=== PATIENT | female | born 1995 | race Caucasian/White ===

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

== ENCOUNTER 2017-01-22 19:06 | Emergency (ER) | payer OTHER ==
[2017-01-22 19:14] VITALS: RESP 18
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
[2017-01-22] MEDS ORDERED: CYCLOBENZAPRINE 10 MG TAB PO STA (19:25)
[2017-01-22] MEDS ORDERED: NAPROXEN 250 MG TAB PO STA (19:27)
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
[2017-01-22 20:44] VITALS: BP 111/75; PULSE 79; TEMP 98.9
== END 2017-01-22 20:44 | disposition home or self-care (01) ==
LOC: EC 19:06
DX: M25.522 Pain in left elbow (principal); M54.2 Cervicalgia; M25.512 Pain in left shoulder; M54.5 Low back pain; F17.200 Nicotine dependence, unspecified, uncomplicated; V43.52XA Car driver injured in collision with other type car in traffic accident, initial encounter; Y92.410 Unspecified street and highway as the place of occurrence of the external cause
CPT/HCPCS: 72050; 72100; 81025; 99284

== ENCOUNTER → 2017-01-31 | Outpatient (CLI) | payer OTHER | END | disposition home or self-care (01) | LOC: RADXRMAIN 16:17 | PROVIDERS: ATTEND Obstetrics & Gynecology | DX: Z53.9 Procedure and treatment not carried out, unspecified reason (principal) ==

== ENCOUNTER → 2017-02-01 | Outpatient (CLI) | payer OTHER ==
--- NOTE | 2017-02-01 15:38 | XR ---
Left humerus HISTORY: Foreign body, Z30.46 2 views of the left humerus. Exam correlated to prior exam 01/22/2017 Longitudinal foreign body is again noted within the soft tissues in the anterior aspect of the upper extremity compatible with contraceptive device. IMPRESSION: Contraceptive device in place at the distal diaphyseal region of the left humerus soft ti ssues at the volar aspect of the left humerus.
== END | disposition home or self-care (01) ==
LOC: RADXRMAIN 13:10
PROVIDERS: ATTEND Obstetrics & Gynecology
DX: Z30.46 Encounter for surveillance of implantable subdermal contraceptive (principal)

== ENCOUNTER 2017-07-12 08:47 | Emergency (ER) | payer OTHER ==
[2017-07-12 08:52] VITALS: BP 121/79; PULSE 111; RESP 18; TEMP 97
--- NOTE | 2017-07-12 09:15 | ED ---
General Adult HPI - General Chief complaint: ENT Stated complaint: Ear pain Time Seen by Provider: 07/12/17 09:09 Source: patient, RN notes reviewed Mode of arrival: ambulatory Limitations: no limitations - History of Present Illness Initial comments: 22-year-old female presents to the emergency department with a chief complaint of cough cold like symptoms. Patient has been sick for the past week or so. She states she started noticing some congestion to the left ear as well. She states that she is smoker. She denies any nausea vomiting. She does not know semi-fevers. Patient was concerned due to the fact she continued to have the symptoms so she thought that she should be seen. Her son has similar like symptoms to her. There has been no other symptoms in the patient at this time. She is otherwise feeling well. Patient denies any recent shortness of breath , chest pain, back pain, abdominal pain, nausea vomiting, numbness or tingling, dysuria or hematuria, constipation or diarrhea, headaches or visual changes, or any other current symptoms. - Related Data Home Medications Medication Instructions Recorded Confirmed Acetaminophen Tab [Tylenol Tab] 325 mg PO Q6H PRN 07/12/17 07/12/17 Previous Rx's Medication Instructions Recorded Pseudoephedrine HCl [Sudafed 240 mg PO DAILY #5 tab.er.24h 07/12/17 24-Hour] Allergies Allergy/AdvReac Type Severity Reaction Status Date / Time No Known Allergies Allergy Verified 07/12/17 09:04 Review of Systems ROS Statement: Those systems with pertinent positive or pertinent negative responses have been documented in the HPI. ROS Other: All systems not noted in ROS Statement are negative. Past Medical History Past Medical History: No Reported History Additional Past Medical History / Comment(s): chronic back pain History of Any Multi-Drug Resistant Organisms: None Reported Past Surgical History: No Surgical Hx Reported Past Psychological History: ADD/ADHD, Anxiety, Depression Smoking Status: Current every day smoker Past Alcohol Use History: None Reported Past Drug Use History: None Reported General Exam - General Exam Comments Initial Comments: General exam: Alert, active, comfortable in no apparent distress Head: Normocephalic Eyes: Normal reaction of pupils, equal size, normal range of extraocular motion Ears: normal external ear canals, pink tympanic membranes with normal cone of light Nose: clear with pink turbinates Throat: no erythema or exudates with normal sized tonsils Neck: no masses, no nuchal rigidity Chest: no chest wall deformity Lungs: equal air entry with no crackles or wheeze CVS: S1 and S2 normal with no audible mumurs, regular rhythm Abdomen: no hepatosplenomegaly, normal bowel sounds, no guarding or rigidity Spine: no scoliosis or deformity Skin: no rashes Neurological: No focal deficits, tone is normal in all 4 extremities Limitations: no limitations Course Vital Signs 07/12/17 08:49 Temperature 97.0 F L Pulse Rate 111 H Respiratory 18 Rate Blood Pressure 121/79 O2 Sat by Pulse 100 Oximetry Medical Decision Making - Medical Decision Making 22-year-old female presents for cough and ear pain. At this time patient states influenza and chest x-ray reviewed and negative. We discussed most likely a viral like syndrome. We did give her prescription for Sudafed to help with congestion. We did discuss return parameters and follow-up and all questions. Patient stated that she understood and she is agreement this plan. All questions have. She will be discharged. - Lab Data Lab Results 07/12/17 Range/Units 09:21 Influenza Type A RNA Not Detected (Not Detectd) Influenza Type B (PCR) Not Detected (Not Detectd) - Radiology Data Radiology results: report reviewed, image reviewed Disposition Clinical Impression: Upper respiratory infection Disposition: HOME SELF-CARE Condition: Stable Instructions: Earache (ED) Additional Instructions: Please use medication as discussed. Please follow up with family doctor if symptoms have not improved over the next two days. Please return to the emergency room if your symptoms increase or worsen or for any other concerns. Prescriptions: Pseudoephedrine HCl [Sudafed 24-Hour] 240 mg PO DAILY #5 tab.er.24h Referrals: Jordan Galvin Jr, DO [Primary Care Provider] - 1-2 days Time of Disposition: 10:07
--- NOTE | 2017-07-12 09:50 | XR ---
EXAMINATION TYPE: XR chest 2V DATE OF EXAM: 07/12/2017 COMPARISON: 08/22/2016 HISTORY: Cough and congestion for approximately 1 week. TECHNIQUE: Frontal and lateral views of the chest are obtained. FINDINGS: There is no focal air space opacity, pleural effusion, or pneumothorax seen. The cardiac silhouette size is within normal limits. The osseous structures are intact. IMPRESSION: No acute cardiopulmonary process, unchanged from the prior.
== END 2017-07-12 10:22 | disposition home or self-care (01) ==
LOC: EC 08:47
DX: J06.9 Acute upper respiratory infection, unspecified (principal); H92.02 Otalgia, left ear; F17.200 Nicotine dependence, unspecified, uncomplicated
CPT/HCPCS: 71046; 87502; 99283

== ENCOUNTER 2017-12-17 02:39 | Emergency (ER) | payer OTHER ==
[2017-12-17] MEDS ORDERED: SODIUM CHLORIDE 0.9% 1,000 ML IV STA (03:40)
[2017-12-17] MEDS ORDERED: KETOROLAC 30 MG/ML 1 ML VIAL IVP STA (03:40)
[2017-12-17] MEDS ORDERED: ACETAMINOPHEN IV (For NPO) 1,000 MG in EMPTY BAG 1 BAG IVPB STA (03:41)
[2017-12-17 04:14] LABS: Basophils % (A) 0 %; Eosinophils # (A) 0.1 k/uL (0-0.7); Eosinophils % (A) 1 %; HCT 35.3 % (34.0-46.0); HGB 12.4 gm/dL (11.4-16.0); Lymphocytes # (A) 1.3 k/uL (1.0-4.8); Lymphocytes % (A) 13 %; MCH 32.4 pg (25.0-35.0); MCV 92.3 fL (80.0-100.0); Monocytes # (A) 0.9 k/uL (0-1.0); Monocytes % (A) 9 %; Neutrophils # (A) 7.3 k/uL (1.3-7.7); Neutrophils % (A) 74 %; Platelet Count 189 k/uL (150-450); RBC 3.82 m/uL (3.80-5.40); RDW 12.6 % (11.5-15.5); WBC 9.9 k/uL (4.0-11.0)
--- NOTE | 2017-12-17 04:15 | ED ---
General Adult HPI - General Source: patient, family, RN notes reviewed Mode of arrival: ambulatory Limitations: no limitations <Yessy Lott - Last Filed: 12/17/17 04:14> <Gordo Ramirez - Last Filed: 12/17/17 04:50> - General Chief complaint: Headache Stated complaint: Headache Time Seen by Provider: 12/17/17 03:27 - History of Present Illness Initial comments: This is a 22-year-old female who presents to the emergency department with chief complaint of headache for the past week and a half. Patient states that she has a constant, throbbing, sharp headache that starts in her forehead and radiates to the base of her skull. She states that she does have a history of headaches. She also reports left side pain that she states is constant and sharp in nature. States that her appetite has been decreased and that she feels nauseous when she sees food. She states she is currently trying to conceive with her boyfriend. Denies any neck pain or stiffness, chest pain or shortness of breath, abdominal pain, vomiting, diarrhea or constipation, dysuria or hematuria. (Yessy Lott) - Related Data Home Medications Medication Instructions Recorded Confirmed No Known Home Medications [No 12/17/17 12/17/17 Known Home Medications] Allergies Allergy/AdvReac Type Severity Reaction Status Date / Time No Known Allergies Allergy Verified 12/17/17 02:48 Review of Systems ROS Other: All systems not noted in ROS Statement are negative. <Yessy Lott - Last Filed: 12/17/17 04:14> ROS Other: All systems not noted in ROS Statement are negative. <Gordo Ramirez - Last Filed: 12/17/17 04:50> ROS Statement: Those systems with pertinent positive or pertinent negative responses have been documented in the HPI. Past Medical History Past Medical History: No Reported History Additional Past Medical History / Comment(s): chronic back pain History of Any Multi-Drug Resistant Organisms: None Reported Past Surgical History: No Surgical Hx Reported Additional Past Surgical History / Comment(s): pt had BC implant removed from left arm in September Past Psychological History: ADD/ADHD, Anxiety, Depression Smoking Status: Current every day smoker Past Alcohol Use History: None Reported Past Drug Use History: None Reported <Yessy Lott - Last Filed: 12/17/17 04:14> General Exam Limitations: no limitations <Yessy Lott - Last Filed: 12/17/17 04:14> <Gordo Ramirez - Last Filed: 12/17/17 04:50> - General Exam Comments Initial Comments: General: Awake and alert, well-developed; in no apparent distress. Does not appear acutely ill. HEENT: Head atraumatic, normocephalic. Pupils are equal, round and reactive to light. Extraocular movements intact. Oropharynx moist without erythema or exudate. Neck: Supple. Normal ROM. No tenderness. Cardiovascular: Regular rate and rhythm. No murmurs, rubs or gallops. Chest symmetrical. Respiratory: Lungs clear to auscultation bilaterally. No wheezes, rales or rhonchi. Normal respiratory effort with no use of accessory muscles. Abdomen: Soft, non-tender, non-distended. No rigidity, rebound or guarding. Normal bowel sounds in all 4 quadrants. Mild left CVA tenderness. Musculoskeletal: Normal ROM, no tenderness bilateral upper and lower extremities. Ambulating normally. Skin: [place], warm and dry without rashes or lesions. Neurological: Alert and oriented x3. CN II-XII grossly intact. Speech is fluent and answers are appropriate. No focal neuro deficits. Psychiatric: Normal mood and affect. No overt signs of depression or anxiety noted. (Yessy Lott) Vital Signs 12/17/17 02:43 Temperature 100.8 F H Pulse Rate 122 H Respiratory 20 Rate Blood Pressure 107/71 O2 Sat by Pulse 95 Oximetry Medical Decision Making - Lab Data Result diagrams: 12/17/17 04:05 12/17/17 04:05 <Gordo Ramirez - Last Filed: 12/17/17 04:50> - Lab Data Lab Results 12/17/17 12/17/17 12/17/17 Range/Units 04:05 04:05 04:05 WBC 9.9 (4.0-11.0) k/uL RBC 3.82 (3.80-5.40) m/uL Hgb 12.4 (11.4-16.0) gm/dL Hct 35.3 (34.0-46.0) % MCV 92.3 (80.0-100.0) fL MCH 32.4 (25.0-35.0) pg MCHC 35.0 (31.0-37.0) g/dL RDW 12.6 (11.5-15.5) % Plt Count 189 (150-450) k/uL Neutrophils % 74 % Lymphocytes % 13 % Monocytes % 9 % Eosinophils % 1 % Basophils % 0 % Neutrophils # 7.3 (1.3-7.7) k/uL Lymphocytes # 1.3 (1.0-4.8) k/uL Monocytes # 0.9 (0-1.0) k/uL Eosinophils # 0.1 (0-0.7) k/uL Basophils # 0.0 (0-0.2) k/uL Sodium 135 L (137-145) mmol/L Potassium 3.7 (3.5-5.1) mmol/L Chloride 100 (98-107) mmol/L Carbon Dioxide 26 (22-30) mmol/L Anion Gap 9 mmol/L BUN 7 (7-17) mg/dL Creatinine 0.60 (0.52-1.04) mg/dL Est GFR (CKD-EPI)AfAm >90 (>60 ml/min/1.73 sqM) Est GFR (CKD-EPI)NonAf >90 (>60 ml/min/1.73 sqM) Glucose 102 H (74-99) mg/dL Calcium 8.8 (8.4-10.2) mg/dL Total Bilirubin 0.3 (0.2-1.3) mg/dL AST 28 (14-36) U/L ALT 41 (9-52) U/L Alkaline Phosphatase 51 (38-126) U/L Total Protein 6.0 L (6.3-8.2) g/dL Albumin 3.6 (3.5-5.0) g/dL Urine Color Urine Appearance (Clear) Urine pH (5.0-8.0) Ur Specific [place] (1.001-1.035) Urine Protein (Negative) Urine Glucose (UA) (Negative) Urine Ketones (Negative) Urine Blood (Negative) Urine Nitrite (Negative) Urine Bilirubin (Negative) Urine Urobilinogen (<2.0) mg/dL Ur Leukocyte Esterase (Negative) Urine RBC (0-5) /hpf Urine WBC (0-5) /hpf Ur Squamous Epith Cells (0-4) /hpf Urine Bacteria (None) /hpf Urine Mucus (None) /hpf Urine HCG, Qual Not Detected (Not Detectd) 12/17/17 Range/Units 04:05 WBC (4.0-11.0) k/uL RBC (3.80-5.40) m/uL Hgb (11.4-16.0) gm/dL Hct (34.0-46.0) % MCV (80.0-100.0) fL MCH (25.0-35.0) pg MCHC (31.0-37.0) g/dL RDW (11.5-15.5) % Plt Count (150-450) k/uL Neutrophils % % Lymphocytes % % Monocytes % % Eosinophils % % Basophils % % Neutrophils # (1.3-7.7) k/uL Lymphocytes # (1.0-4.8) k/uL Monocytes # (0-1.0) k/uL Eosinophils # (0-0.7) k/uL Basophils # (0-0.2) k/uL Sodium (137-145) mmol/L Potassium (3.5-5.1) mmol/L Chloride (98-107) mmol/L Carbon Dioxide (22-30) mmol/L Anion Gap mmol/L BUN (7-17) mg/dL Creatinine (0.52-1.04) mg/dL Est GFR (CKD-EPI)AfAm (>60 ml/min/1.73 sqM) Est GFR (CKD-EPI)NonAf (>60 ml/min/1.73 sqM) Glucose (74-99) mg/dL Calcium (8.4-10.2) mg/dL Total Bilirubin (0.2-1.3) mg/dL AST (14-36) U/L ALT (9-52) U/L Alkaline Phosphatase (38-126) U/L Total Protein (6.3-8.2) g/dL Albumin (3.5-5.0) g/dL Urine Color Yellow Urine Appearance Cloudy H (Clear) Urine pH 5.5 (5.0-8.0) Ur Specific [place] 1.017 (1.001-1.035) Urine Protein 1+ H (Negative) Urine Glucose (UA) Negative (Negative) Urine Ketones Negative (Negative) Urine Blood Moderate H (Negative) Urine Nitrite Positive H (Negative) Urine Bilirubin Negative (Negative) Urine Urobilinogen <2.0 (<2.0) mg/dL Ur Leukocyte Esterase Moderate H (Negative) Urine RBC 6 H (0-5) /hpf Urine WBC 81 H (0-5) /hpf Ur Squamous Epith Cells 6 H (0-4) /hpf Urine Bacteria Many H (None) /hpf Urine Mucus Moderate H (None) /hpf Urine HCG, Qual (Not Detectd) Disposition <Yessy Lott - Last Filed: 12/17/17 04:14> Is patient prescribed a controlled substance at d/c from ED?: No <Gordo Ramirez - Last Filed: 12/17/17 04:50> Clinical Impression: Fever, Pyelonephritis Disposition: HOME SELF-CARE Condition: Good Instructions: Kidney Infection (ED), Urinary Tract Infection in Women (ED) Referrals: Jordan Galvin Jr, [Primary Care Provider] - 1-2 days
[2017-12-17 04:23] LABS: ALT 41 U/L (9-52); AST 28 U/L (14-36); Albumin 3.6 g/dL (3.5-5.0); Alkaline Phosphatase 51 U/L (38-126); Anion Gap 9 mmol/L; Appearance,Urine Cloudy (Clear); Bacteria,Urine Many /hpf; Bilirubin,Urine Negative (Negative); Blood Urea Nitrogen 7 mg/dL (7-17); Blood,Urine Moderate (Negative); Calcium 8.8 mg/dL (8.4-10.2); Carbon Dioxide 26 mmol/L (22-30); Chloride 100 mmol/L (98-107); Color,Urine Yellow; Glucose 102 mg/dL (74-99); Glucose,Urine (UA) Negative (Negative); Ketones,Urine Negative (Negative); Leukocyte Esterase,Urine Moderate (Negative); Mucus,Urine Moderate /hpf; Nitrite,Urine Positive (Negative); PH, Urine 5.5 (5.0-8.0); Potassium 3.7 mmol/L (3.5-5.1); Protein,Urine 1+ (Negative); RBC,Urine 6 /hpf (0-5); Sodium 135 mmol/L (137-145); Specific Gravity,Urine 1.017 (1.001-1.035); Squamous Epithelial Cell,Urine 6 /hpf (0-4); Total Bilirubin 0.3 mg/dL (0.2-1.3); Urobilinogen,Urine <2.0 mg/dL (<2.0); WBC,Urine 81 /hpf (0-5)
[2017-12-17] MEDS ORDERED: cefTRIAXone IN SWFI 2,000 MG/20 ML SYRINGE IVP STA (04:30)
--- NOTE | 2017-12-17 04:43 | XR ---
EXAMINATION TYPE: XR abdomen acute w cxr DATE OF EXAM: 12/17/2017 COMPARISON: 08/25/2011 HISTORY: Constipation TECHNIQUE: Chest x-ray and supine and upright abdomen. FINDINGS: Heart and mediastinum are normal. Lungs are clear. Diaphragm is normal. Bowel gas pattern is normal. There is no sign of intestinal obstruction or pneumoperitoneum. Fecal pattern is normal. There are no pathologic calcifications. IMPRESSION: Normal chest. Nonacute abdomen. No evidence of constipation.
--- NOTE | 2017-12-17 05:19 | CT ---
EXAMINATION TYPE: CT abdomen pelvis wo con DATE OF EXAM: 12/17/2017 COMPARISON: NONE HISTORY: Left flank pain CT DLP: 240.90 mGycm Automated exposure control for dose reduction was used. TECHNIQUE: Helical acquisition of images was performed from the lung bases through the pelvis. FINDINGS: Lung bases are clear. There is no pleural effusion. Heart size is normal. Liver spleen pancreas gallbladder appear normal. Bile ducts are not dilated. There is no adrenal mass . Kidneys have normal size. I see no hydronephrosis. Ureters are not dilated. Exam is limited by lack of intraperitoneal fat. I see no intestinal wall thickening. There are no dilated loops. Bladder dis tends smoothly. Uterus is anteverted. Lumbar spine is intact. There is no free fluid in the pelvis. T here is no ascites. There is no sign of free air. There is no retroperitoneal adenopathy. Appendix is not well seen. IMPRESSION: NEGATIVE CT SCAN OF THE ABDOMEN AND PELVIS. NO EVIDENCE OF RENAL STONE OR OBSTRUCTION. NO SIGN OF JUAN ANTONIO ENDICITIS.
[2017-12-17 05:28] VITALS: BP 105/58; PULSE 88; RESP 18; TEMP 98.3
== END 2017-12-17 05:36 | disposition home or self-care (01) ==
LOC: EC 02:39
DX: N12 Tubulo-interstitial nephritis, not specified as acute or chronic (principal); F17.200 Nicotine dependence, unspecified, uncomplicated
CPT/HCPCS: 36415; 80053; 85025; 81001; 81025; 74022; 74176; 99284; 96365; 96375 ×2; J0696; J1885; J0131

== ENCOUNTER 2018-01-02 08:42 | Emergency (ER) | payer OTHER ==
[2018-01-02] MEDS ORDERED: SODIUM CHLORIDE 0.9% 1,000 ML IV ONE (09:17)
[2018-01-02] MEDS ORDERED: KETOROLAC 30 MG/ML 1 ML VIAL IVP STA (09:17)
[2018-01-02] MEDS ORDERED: HYDROcodone/APAP 5-325MG 1 EACH TAB PO STA (09:20)
--- NOTE | 2018-01-02 09:22 | ED ---
General Adult HPI - General Chief complaint: Back Pain/Injury Stated complaint: back pain Time Seen by Provider: 01/02/18 08:55 Source: EMS, RN notes reviewed, old records reviewed Mode of arrival: EMS Limitations: no limitations - History of Present Illness Initial comments: This Patient is a 22-year-old female with multiple complaints today. Patient states that she was seen 2 weeks ago for urinary tract infections we'll check a kidney infection. She is currently taking Cipro. She reports her urine has cleared up this time. She states that she does have some lower abdominal pain. She is currently on her menstrual cycle. Patient states that she's also had a shooting back pain this morning at 4 AM. She then fell on her floor afterwards and took 45 minutes for her to get up. EMS was called. She also reports that over the past week she's been having a cough and congestion. Denies any significant redness of breath or chest pain. - Related Data Previous Rx's Medication Instructions Recorded Ciprofloxacin HCl [Cipro] 500 mg PO Q12HR #28 tablet 12/17/17 Cyclobenzaprine [Flexeril] 10 mg PO TID #12 tab 01/02/18 Ibuprofen [Motrin] 800 mg PO TID #20 tab 01/02/18 traMADol HCl [Ultram] 50 mg PO Q4HR PRN 3 Days #18 tab 01/02/18 Allergies Allergy/AdvReac Type Severity Reaction Status Date / Time No Known Allergies Allergy Verified 01/02/18 09:00 Review of Systems ROS Statement: Those systems with pertinent positive or pertinent negative responses have been documented in the HPI. ROS Other: All systems not noted in ROS Statement are negative. Past Medical History Past Medical History: No Reported History Additional Past Medical History / Comment(s): chronic back pain History of Any Multi-Drug Resistant Organisms: None Reported Past Surgical History: No Surgical Hx Reported Additional Past Surgical History / Comment(s): pt had BC implant removed from left arm in September Past Psychological History: ADD/ADHD, Anxiety, Depression Smoking Status: Current every day smoker Past Alcohol Use History: None Reported Past Drug Use History: None Reported General Exam - General Exam Comments Initial Comments: this is a 22-year-old female. Alert and oriented. No acute distress. Limitations: no limitations General appearance: alert, in no apparent distress Head exam: Present: atraumatic, normocephalic, normal inspection Eye exam: Present: normal appearance ENT exam: Present: normal exam, mucous membranes moist Neck exam: Present: normal inspection. Absent: tenderness, meningismus, lymphadenopathy Respiratory exam: Present: normal lung sounds bilaterally. Absent: respiratory distress, wheezes, rales, rhonchi, stridor Cardiovascular Exam: Present: regular rate, normal rhythm, normal heart sounds. Absent: systolic murmur, diastolic murmur, rubs, gallop, clicks GI/Abdominal exam: Present: soft, normal bowel sounds. Absent: distended, tenderness, guarding, rebound, rigid Extremities exam: Present: normal inspection, full ROM, normal capillary refill. Absent: tenderness, pedal edema, joint swelling, calf tenderness Back exam: Present: tenderness, paraspinal tenderness (lumbar and thoracic vertebral spinal tenderness.), vertebral tenderness. Absent: normal inspection Neurological exam: Present: alert, oriented X3, CN II-XII intact Psychiatric exam: Present: normal affect, normal mood Skin exam: Present: warm, dry, intact, normal color. Absent: rash Course Vital Signs 01/02/18 01/02/18 01/02/18 08:44 10:57 11:42 Temperature 100.0 F H 98.8 F Pulse Rate 72 87 Respiratory 18 16 Rate Blood Pressure 102/57 110/58 O2 Sat by Pulse 99 96 Oximetry Medical Decision Making - Medical Decision Making This Patient is a 22-year-old female with multiple complaints today. Patient states that she was seen 2 weeks ago for urinary tract infections we'll check a kidney infection. She is currently taking Cipro. She reports her urine has cleared up this time. She states that she does have some lower abdominal pain. She is currently on her menstrual cycle. Patient states that she's also had a shooting back pain this morning at 4 AM. She then fell on her floor afterwards and took 45 minutes for her to get up. Patient has tenderness over lumbar spine. She has full ROM in lower extremities. Patient otherwise appears well. Patient given IV fluids and pain medication. Xray of lumbar pine shows DDD. She has normal CXR. She has no sign of infection in urine, she is on menstrual cycle in regards to amount of blood in urine. Patient advised to follow up with PCP and continue cipro until finished. She will be started on a muscle relaxer. REturn parameters discussed. - Lab Data Result diagrams: 01/02/18 09:45 01/02/18 09:45 Lab Results 01/02/18 01/02/18 01/02/18 Range/Units 09:40 09:40 09:45 WBC 14.4 H (4.0-11.0) k/uL RBC 4.25 (3.80-5.40) m/uL Hgb 14.0 (11.4-16.0) gm/dL Hct 40.5 (34.0-46.0) % MCV 95.1 (80.0-100.0) fL MCH 33.0 (25.0-35.0) pg MCHC 34.7 (31.0-37.0) g/dL RDW 13.7 (11.5-15.5) % Plt Count 211 (150-450) k/uL Neutrophils % 92 % Lymphocytes % 4 % Monocytes % 4 % Eosinophils % 0 % Basophils % 0 % Neutrophils # 13.2 H (1.3-7.7) k/uL Lymphocytes # 0.5 L (1.0-4.8) k/uL Monocytes # 0.6 (0-1.0) k/uL Eosinophils # 0.0 (0-0.7) k/uL Basophils # 0.0 (0-0.2) k/uL Sodium (137-145) mmol/L Potassium (3.5-5.1) mmol/L Chloride (98-107) mmol/L Carbon Dioxide (22-30) mmol/L Anion Gap mmol/L BUN (7-17) mg/dL Creatinine (0.52-1.04) mg/dL Est GFR (CKD-EPI)AfAm (>60 ml/min/1.73 sqM) Est GFR (CKD-EPI)NonAf (>60 ml/min/1.73 sqM) Glucose (74-99) mg/dL Calcium (8.4-10.2) mg/dL Total Bilirubin (0.2-1.3) mg/dL AST (14-36) U/L ALT (9-52) U/L Alkaline Phosphatase (38-126) U/L Total Protein (6.3-8.2) g/dL Albumin (3.5-5.0) g/dL Urine Color Yellow Urine Appearance Clear (Clear) Urine pH 8.0 (5.0-8.0) Ur Specific [place] 1.019 (1.001-1.035) Urine Protein Trace H (Negative) Urine Glucose (UA) Negative (Negative) Urine Ketones Trace H (Negative) Urine Blood Large H (Negative) Urine Nitrite Negative (Negative) Urine Bilirubin Negative (Negative) Urine Urobilinogen 2.0 (<2.0) mg/dL Ur Leukocyte Esterase Small H (Negative) Urine RBC >182 H (0-5) /hpf Urine WBC 8 H (0-5) /hpf Ur Squamous Epith Cells 3 (0-4) /hpf Urine Mucus Rare H (None) /hpf Urine HCG, Qual Not Detected (Not Detectd) 01/02/18 Range/Units 09:45 WBC (4.0-11.0) k/uL RBC (3.80-5.40) m/uL Hgb (11.4-16.0) gm/dL Hct (34.0-46.0) % MCV (80.0-100.0) fL MCH (25.0-35.0) pg MCHC (31.0-37.0) g/dL RDW (11.5-15.5) % Plt Count (150-450) k/uL Neutrophils % % Lymphocytes % % Monocytes % % Eosinophils % % Basophils % % Neutrophils # (1.3-7.7) k/uL Lymphocytes # (1.0-4.8) k/uL Monocytes # (0-1.0) k/uL Eosinophils # (0-0.7) k/uL Basophils # (0-0.2) k/uL Sodium 141 (137-145) mmol/L Potassium 4.1 (3.5-5.1) mmol/L Chloride 106 (98-107) mmol/L Carbon Dioxide 24 (22-30) mmol/L Anion Gap 11 mmol/L BUN 11 (7-17) mg/dL Creatinine 0.60 (0.52-1.04) mg/dL Est GFR (CKD-EPI)AfAm >90 (>60 ml/min/1.73 sqM) Est GFR (CKD-EPI)NonAf >90 (>60 ml/min/1.73 sqM) Glucose 100 H (74-99) mg/dL Calcium 9.8 (8.4-10.2) mg/dL Total Bilirubin 0.8 (0.2-1.3) mg/dL AST 23 (14-36) U/L ALT 35 (9-52) U/L Alkaline Phosphatase 66 (38-126) U/L Total Protein 7.1 (6.3-8.2) g/dL Albumin 4.5 (3.5-5.0) g/dL Urine Color Urine Appearance (Clear) Urine pH (5.0-8.0) Ur Specific [place] (1.001-1.035) Urine Protein (Negative) Urine Glucose (UA) (Negative) Urine Ketones (Negative) Urine Blood (Negative) Urine Nitrite (Negative) Urine Bilirubin (Negative) Urine Urobilinogen (<2.0) mg/dL Ur Leukocyte Esterase (Negative) Urine RBC (0-5) /hpf Urine WBC (0-5) /hpf Ur Squamous Epith Cells (0-4) /hpf Urine Mucus (None) /hpf Urine HCG, Qual (Not Detectd) - Radiology Data Radiology results: report reviewed Degenerative disc disease is mild. Lumbar vertebral bodies show stable height and alignment. Spaces are maintained disc l I loss L5-S1. Slight spinal curvature. Chest x-ray is negative for any acute cardiopulmonary process. Disposition Clinical Impression: DDD (degenerative disc disease), Upper respiratory infection Disposition: HOME SELF-CARE Condition: Good Instructions: Acute Low Back Pain (ED) Additional Instructions: Patient is to complete the antibiotic is As prescribed previuosly. Follow-up with primary care physician. Take the medication as prescribed. Return to emergency department if any alarming signs or symptoms occur. Prescriptions: Cyclobenzaprine [Flexeril] 10 mg PO TID #12 tab Ibuprofen [Motrin] 800 mg PO TID #20 tab traMADol HCl [Ultram] 50 mg PO Q4HR PRN 3 Days #18 tab PRN Reason: Pain Is patient prescribed a controlled substance at d/c from ED?: No When asked, does pt state using other controlled substances?: No If prescribed controlled substance>3 days was MAPS reviewed?: No If opioid is for acute pain is fill amount 7 days or less?: No If Rx opioid, was Start Talking consent form obtained?: No Referrals: Jordan Galvin Jr, DO [Primary Care Provider] - 1-2 days Time of Disposition: 11:31
[2018-01-02 10:15] LABS: Appearance,Urine Clear (Clear); Bilirubin,Urine Negative (Negative); Blood,Urine Large (Negative); Color,Urine Yellow; Glucose,Urine (UA) Negative (Negative); Ketones,Urine Trace (Negative); Leukocyte Esterase,Urine Small (Negative); Mucus,Urine Rare /hpf; Nitrite,Urine Negative (Negative); Protein,Urine Trace (Negative); RBC,Urine >182 /hpf (0-5); Specific Gravity,Urine 1.019 (1.001-1.035); Squamous Epithelial Cell,Urine 3 /hpf (0-4); WBC,Urine 8 /hpf (0-5)
[2018-01-02 10:16] LABS: ALT 35 U/L (9-52); AST 23 U/L (14-36); Albumin 4.5 g/dL (3.5-5.0); Alkaline Phosphatase 66 U/L (38-126); Anion Gap 11 mmol/L; Blood Urea Nitrogen 11 mg/dL (7-17); Calcium 9.8 mg/dL (8.4-10.2); Carbon Dioxide 24 mmol/L (22-30); Chloride 106 mmol/L (98-107); Glucose 100 mg/dL (74-99); Potassium 4.1 mmol/L (3.5-5.1); Sodium 141 mmol/L (137-145); Total Bilirubin 0.8 mg/dL (0.2-1.3); Total Protein 7.1 g/dL (6.3-8.2)
[2018-01-02 10:31] LABS: Basophils % (A) 0 %; Eosinophils % (A) 0 %; HCT 40.5 % (34.0-46.0); Lymphocytes # (A) 0.5 k/uL (1.0-4.8); Lymphocytes % (A) 4 %; MCHC 34.7 g/dL (31.0-37.0); MCV 95.1 fL (80.0-100.0); Monocytes # (A) 0.6 k/uL (0-1.0); Monocytes % (A) 4 %; Neutrophils # (A) 13.2 k/uL (1.3-7.7); Neutrophils % (A) 92 %; Platelet Count 211 k/uL (150-450); RBC 4.25 m/uL (3.80-5.40); RDW 13.7 % (11.5-15.5); WBC 14.4 k/uL (4.0-11.0)
--- NOTE | 2018-01-02 10:48 | XR ---
EXAMINATION TYPE: XR chest 2V DATE OF EXAM: 01/02/2018 COMPARISON: 07/12/2017 HISTORY: Back pain and chest pain with no known injury. TECHNIQUE: Frontal and lateral views of the chest are obtained. FINDINGS: There is no focal air space opacity, pleural effusion, or pneumothorax seen. The cardiac silhouette size is within normal limits. The osseous structures are intact. IMPRESSION: No acute cardiopulmonary process.
--- NOTE | 2018-01-02 10:51 | XR ---
Lumbar spine HISTORY: Back pain 3 views of the lumbar spine correlated to prior exam 01/22/2017, CT 12/17/2017 Lumbar vertebral bodies show stable height, alignment, and bone mineralization. Disc spaces are maint ained, disc height loss L5-S1. There is a slight spinal curvature. IMPRESSION: Degenerative disc disease is mild
[2018-01-02 10:58] VITALS: TEMP 98.8
[2018-01-02 11:44] VITALS: BP 110/58; PULSE 87; RESP 16
== END 2018-01-02 11:48 | disposition home or self-care (01) ==
LOC: EC 08:42
DX: M51.36 Other intervertebral disc degeneration, lumbar region (principal); J06.9 Acute upper respiratory infection, unspecified; F17.200 Nicotine dependence, unspecified, uncomplicated
CPT/HCPCS: 36415; 80053; 85025; 81001; 81025; 72100; 71046; 99284; 96374; 96361 ×2; J1885

== ENCOUNTER 2018-02-04 17:40 | Emergency (ER) | payer OTHER ==
[2018-02-04 17:48] VITALS: BP 109/77; PULSE 97; RESP 18; TEMP 98.5
[2018-02-04] MEDS ORDERED: TOPICAL SKIN ADHESIVE 1 EACH AMP TOPICAL ONE (18:15)
[2018-02-04] MEDS ORDERED: DIPH,PERTUS(ACELL)TETVAC-LF 0.5 ML VIAL IM ONE (18:22)
--- NOTE | 2018-02-04 18:23 | ED ---
Skin/Abscess/FB HPI - General Chief complaint: Skin/Abscess/Foreign Body Stated complaint: rt hand lac Time Seen by Provider: 02/04/18 17:49 Source: patient, RN notes reviewed, old records reviewed Mode of arrival: ambulatory Limitations: no limitations - History of Present Illness Initial comments: This patient is a 22 year old female with laceration over R finger. She was washing dishes and cut her hand on the edge of the glass. She reports full ROM of fingers. Patient needs TDAP vaccine. She reports no other injury. - Related Data Previous Rx's Medication Instructions Recorded Ciprofloxacin HCl [Cipro] 500 mg PO Q12HR #28 tablet 12/17/17 Cyclobenzaprine [Flexeril] 10 mg PO TID #12 tab 01/02/18 Ibuprofen [Motrin] 800 mg PO TID #20 tab 01/02/18 traMADol HCl [Ultram] 50 mg PO Q4HR PRN 3 Days #18 tab 01/02/18 Allergies Allergy/AdvReac Type Severity Reaction Status Date / Time No Known Allergies Allergy Verified 02/04/18 17:48 Review of Systems ROS Statement: Those systems with pertinent positive or pertinent negative responses have been documented in the HPI. ROS Other: All systems not noted in ROS Statement are negative. Past Medical History Past Medical History: No Reported History Additional Past Medical History / Comment(s): chronic back pain History of Any Multi-Drug Resistant Organisms: None Reported Past Surgical History: No Surgical Hx Reported Additional Past Surgical History / Comment(s): pt had BC implant removed from left arm in September Past Psychological History: ADD/ADHD, Anxiety, Depression Smoking Status: Current every day smoker Past Alcohol Use History: None Reported Past Drug Use History: None Reported General Exam - General Exam Comments Initial Comments: This is a well appearing 22 year old female, no distress. Limitations: no limitations General appearance: alert, in no apparent distress Head exam: Present: atraumatic, normocephalic, normal inspection Eye exam: Present: normal appearance, PERRL, EOMI. Absent: scleral icterus, conjunctival injection, periorbital swelling ENT exam: Present: normal exam, mucous membranes moist Neck exam: Present: normal inspection. Absent: tenderness, meningismus, lymphadenopathy Respiratory exam: Present: normal lung sounds bilaterally. Absent: respiratory distress, wheezes, rales, rhonchi, stridor Cardiovascular Exam: Present: regular rate, normal rhythm, normal heart sounds. Absent: systolic murmur, diastolic murmur, rubs, gallop, clicks GI/Abdominal exam: Present: soft, normal bowel sounds. Absent: distended, tenderness, guarding, rebound, rigid Right Hand L/R Back: 1 - skin abrasion Back exam: Present: normal inspection Neurological exam: Present: alert, oriented X3, CN II-XII intact Psychiatric exam: Present: normal affect, normal mood Skin exam: Present: warm, dry, intact, normal color. Absent: rash Course Vital Signs 02/04/18 17:46 Temperature 98.5 F Pulse Rate 97 Respiratory 18 Rate Blood Pressure 109/77 O2 Sat by Pulse 99 Oximetry Procedures - Laceration Laceration #1 Site: hand (R index finger) Size (cm): 3 Description: linear Depth: simple, single layer Pre-repair: wound explored, irrigated extensively Type of Sutures: other (dermabond) Patient Tolerated Procedure: well, no complications Medical Decision Making - Medical Decision Making 22 year old female with laceration to R index finger. Laveration is superficial , and was cleaned and well approximated with dermabond. Full ROM noted. Given Updated TDAP. Discussed wound care. All questions answered and return parameters dsicussed. Disposition Clinical Impression: Finger laceration Disposition: HOME SELF-CARE Condition: Good Instructions: Abrasion (ED) Additional Instructions: Patient advised to keep the area clean and dry. Wear the Ramesh bandage. Return to the emergency department if any alarming signs or symptoms occur. Allow the skin glue to fall off up on its own. Is patient prescribed a controlled substance at d/c from ED?: No When asked, does pt state using other controlled substances?: No Referrals: Jordan Galvin Jr, DO [Primary Care Provider] - 1-2 days Time of Disposition: 18:22
== END 2018-02-04 19:25 | disposition home or self-care (01) ==
LOC: EC 17:40
DX: S61.210A Laceration without foreign body of right index finger without damage to nail, initial encounter (principal); F17.200 Nicotine dependence, unspecified, uncomplicated; W25.XXXA Contact with sharp glass, initial encounter; Y93.G1 Activity, food preparation and clean up
CPT/HCPCS: 12002; 99283

== ENCOUNTER 2019-03-18 08:09 | Emergency (ER) | payer OTHER ==
[2019-03-18 08:13] VITALS: RESP 18; TEMP 97.8
--- NOTE | 2019-03-18 08:52 | XR ---
EXAMINATION TYPE: XR chest 2V DATE OF EXAM ORDERED: 03/18/2019 HISTORY: Difficulty breathing . REFERENCE: Previous study dated 01/02/2018. FINDINGS: The lungs are clear. Pleural spaces are clear. Heart size is normal. IMPRESSION: NORMAL CHEST.
[2019-03-18] MEDS ORDERED: IPRATROPIUM-ALBUTEROL 3 ML NEB INHALATION STA (08:59)
--- NOTE | 2019-03-18 09:21 | ED ---
General Adult HPI - General Chief complaint: Shortness of Breath Stated complaint: Diff Breathing Time Seen by Provider: 03/18/19 08:10 Source: patient, RN notes reviewed Mode of arrival: ambulatory Limitations: no limitations - History of Present Illness Initial comments: This is a 23-year-old female presents emergency department stating she woke up this morning and felt short of breath. Patient states she's had no cough no chest pain L petitions. Patient denies any leg swelling or calf tetanus. Patient denies any control. Patient states anytime she starts to try to take a deep breath it makes her hyperventilate. As patient is telling me her story her mouth is closed she is in no respiratory distress and she's breathing through her nose mostly. Patient denies any recent fever chills per patient denies abdominal pain patient denies nausea vomiting. - Related Data Home Medications Medication Instructions Recorded Confirmed No Known Home Medications 03/18/19 03/18/19 Allergies Allergy/AdvReac Type Severity Reaction Status Date / Time No Known Allergies Allergy Verified 03/18/19 08:54 Review of Systems ROS Statement: Those systems with pertinent positive or pertinent negative responses have been documented in the HPI. ROS Other: All systems not noted in ROS Statement are negative. Past Medical History Past Medical History: No Reported History Additional Past Medical History / Comment(s): chronic back pain History of Any Multi-Drug Resistant Organisms: None Reported Past Surgical History: No Surgical Hx Reported Additional Past Surgical History / Comment(s): pt had BC implant removed from left arm in September Past Psychological History: ADD/ADHD, Anxiety, Depression Smoking Status: Current every day smoker Past Alcohol Use History: None Reported Past Drug Use History: None Reported General Exam - General Exam Comments Initial Comments: GENERAL: Patient is well-developed and well-nourished. Patient is nontoxic and well- hydrated and is in no acute distress. ENT: Neck is soft and supple. No significant lymphadenopathy is noted. Oropharynx is clear. Moist mucous membranes. Neck has full range of motion without eliciting any pain.were felt. EYES: The sclera were anicteric and conjunctiva were pink and moist. Extraocular movements were intact and pupils were equal round and reactive to light. Eyelids were unremarkable. PULMONARY: Unlabored respirations. Good breath sounds bilaterally. No audible rales rhonchi or wheezing was noted. CARDIOVASCULAR: There is a regular rate and rhythm without any murmurs gallops or rubs. ABDOMEN: Soft and nontender with normal bowel sounds. No palpable organomegaly was noted. There is no palpable pulsatile mass. SKIN: Skin is clear with no lesions or rashes and otherwise unremarkable. NEUROLOGIC: Patient is alert and oriented x3. Cranial nerves II through XII are grossly intact. Motor and sensory are also intact. Normal speech, volume and content. Symmetrical smile. MUSCULOSKELETAL: Normal extremities with adequate strength and full range of motion. . LYMPHATICS: No significant lymphadenopathy is noted PSYCHIATRIC: Patient is mildly anxious Limitations: no limitations Course Vital Signs 03/18/19 03/18/19 03/18/19 08:12 08:40 09:12 Temperature 97.8 F Pulse Rate 72 83 76 Respiratory 18 Rate Blood Pressure 109/74 O2 Sat by Pulse 100 94 L Oximetry 03/18/19 09:22 Temperature Pulse Rate 82 Respiratory Rate Blood Pressure O2 Sat by Pulse Oximetry Medical Decision Making - Medical Decision Making Chest x-ray shows no acute abnormality. Patient's EKG shows normal sinus rhythm at 73 bpm TN interval 172 QRS is 76 QT interval 42 QTC is 442. Patient's EKG shows no ST segment elevation or depression or T wave abnormalities are noted. Patient's d-dimer was normal. Patient was oxygenating in the high 90s all-time she was here without oxygen. Patient did admit to me that she has a history of anxiety and panic attacks and this could very well be 1. Throughout the course of the patient in the emergency department she was lying comfortably never in any respiratory distress breathing through her nose with her mouth shut. - Lab Data Lab Results 03/18/19 Range/Units 09:17 D-Dimer 0.19 (<0.60) mg/L FEU Disposition Clinical Impression: Anxiety Disposition: HOME SELF-CARE Instructions (If sedation given, give patient instructions): Anxiety (ED) Is patient prescribed a controlled substance at d/c from ED?: No Referrals: Mhosen Hassan MD [Primary Care Provider] - 1-2 days Time of Disposition: 10:30
[2019-03-18 10:57] VITALS: BP 122/73
[2019-03-18 11:13] VITALS: PULSE 88
== END 2019-03-18 11:12 | disposition home or self-care (01) ==
LOC: EC 08:09
DX: F41.9 Anxiety disorder, unspecified (principal); F17.200 Nicotine dependence, unspecified, uncomplicated
CPT/HCPCS: 36415; 71046; 85379; 94640; 99285

== ENCOUNTER 2019-04-11 09:19 | Emergency (ER) | payer OTHER ==
[2019-04-11 09:31] VITALS: TEMP 97.9
--- NOTE | 2019-04-11 10:23 | ED ---
Female Urogenital HPI - General Chief complaint: Vaginal Bleeding Stated complaint: Female Time Seen by Provider: 04/11/19 09:33 Source: patient, RN notes reviewed Mode of arrival: ambulatory Limitations: no limitations - History of Present Illness Initial comments: This is a 24-year-old female presents emergency Department chief complaint of vaginal bleeding, vaginal discomfort. Patient states that she is been being worked up by the [facility] for possible STDs which were negative. Patient states been on and off control but states that she had a menstrual cycle a few days ago but started again. Patient states that she's passing some mild blood denies any vaginal discharge she does state that she has relief initially when she urinates but states causes increased pain when she stops. Patient reports no back pain no flank pain. Denies any chance printed. - Related Data Previous Rx's Medication Instructions Recorded Cephalexin [Keflex] 500 mg PO Q6HR #28 cap 04/11/19 Phenazopyridine [Pyridium] 200 mg PO TID #6 tablet 04/11/19 Allergies Allergy/AdvReac Type Severity Reaction Status Date / Time No Known Allergies Allergy Verified 04/11/19 10:53 Review of Systems ROS Statement: Those systems with pertinent positive or pertinent negative responses have been documented in the HPI. ROS Other: All systems not noted in ROS Statement are negative. Past Medical History Past Medical History: No Reported History Additional Past Medical History / Comment(s): chronic back pain History of Any Multi-Drug Resistant Organisms: None Reported Past Surgical History: No Surgical Hx Reported Additional Past Surgical History / Comment(s): pt had BC implant removed from left arm in September Past Psychological History: ADD/ADHD, Anxiety, Depression Smoking Status: Current every day smoker Past Alcohol Use History: None Reported Past Drug Use History: Marijuana General Exam Limitations: no limitations General appearance: alert, in no apparent distress Head exam: Present: atraumatic, normocephalic, normal inspection Eye exam: Present: normal appearance, PERRL, EOMI. Absent: scleral icterus, conjunctival injection, periorbital swelling ENT exam: Present: normal exam, normal oropharynx, mucous membranes moist Neck exam: Present: normal inspection, full ROM. Absent: tenderness, meningismus, lymphadenopathy Respiratory exam: Present: normal lung sounds bilaterally. Absent: respiratory distress, wheezes, rales, rhonchi, stridor Cardiovascular Exam: Present: regular rate, normal rhythm, normal heart sounds. Absent: systolic murmur, diastolic murmur, rubs, gallop, clicks GI/Abdominal exam: Present: soft, tenderness (Mild suprapubic), normal bowel sounds. Absent: distended, guarding, rebound, rigid Neurological exam: Present: alert, oriented X3, CN II-XII intact Skin exam: Present: warm, dry, intact, normal color. Absent: rash Course Vital Signs 04/11/19 09:29 Temperature 97.9 F Pulse Rate 93 Respiratory 18 Rate Blood Pressure 130/84 O2 Sat by Pulse 98 Oximetry Medical Decision Making - Medical Decision Making Urinalysis revealed shows evidence of urinary tract infection. Patient does have blood noted though this is from her current mental cycle. Ultrasound shows normal endometrial lining possible hemorrhagic cyst. Patient symptoms are related to her urinary tract infection was given Rocephin emergency Department discharge on Keflex. Pending urine culture - Lab Data Lab Results 04/11/19 Range/Units 10:05 Urine Color Yellow Urine Appearance Cloudy H (Clear) Urine pH 8.5 H (5.0-8.0) Ur Specific [place] 1.021 (1.001-1.035) Urine Protein 3+ H (Negative) Urine Glucose (UA) Negative (Negative) Urine Ketones Negative (Negative) Urine Blood Moderate H (Negative) Urine Nitrite Negative (Negative) Urine Bilirubin Negative (Negative) Urine Urobilinogen 2.0 (<2.0) mg/dL Ur Leukocyte Esterase Large H (Negative) Urine RBC >182 H (0-5) /hpf Urine WBC >182 H (0-5) /hpf Ur Squamous Epith Cells 1 (0-4) /hpf Urine Mucus Few H (None) /hpf Disposition Clinical Impression: Urinary tract infection, Dysfunctional uterine bleeding Disposition: HOME SELF-CARE Condition: Stable Instructions (If sedation given, give patient instructions): Urinary Tract Infection in Women (ED) Additional Instructions: Please return to the Emergency Department if symptoms worsen or any other concerns. Prescriptions: Cephalexin [Keflex] 500 mg PO Q6HR #28 cap Phenazopyridine [Pyridium] 200 mg PO TID #6 tablet Is patient prescribed a controlled substance at d/c from ED?: No Referrals: Mohsen Hassan MD [Primary Care Provider] - 1-2 days Time of Disposition: 11:25
[2019-04-11 10:44] LABS: Appearance,Urine Cloudy (Clear); Bilirubin,Urine Negative (Negative); Blood,Urine Moderate (Negative); Color,Urine Yellow; Glucose,Urine (UA) Negative (Negative); Ketones,Urine Negative (Negative); Leukocyte Esterase,Urine Large (Negative); Mucus,Urine Few /hpf; Nitrite,Urine Negative (Negative); PH, Urine 8.5 (5.0-8.0); Protein,Urine 3+ (Negative); RBC,Urine >182 /hpf (0-5); Specific Gravity,Urine 1.021 (1.001-1.035); Squamous Epithelial Cell,Urine 1 /hpf (0-4)
--- NOTE | 2019-04-11 10:48 | US ---
EXAMINATION TYPE: US transvaginal DATE OF EXAM: 04/11/2019 COMPARISON: NONE CLINICAL HISTORY: pain. vagina pain for 3 days after rough intercourse, TECHNIQUE: TV. Transvaginal sonographic images Date of LMP: 04/06/2019 EXAM MEASUREMENTS: Uterus: 8.0 x 5.1 x 3.7 cm Endometrial Stripe: 0.7 cm Right Ovary: 3.2 x 2.8 x 2.7 cm Left Ovary: 2.7 x 2.0 x 2.3 cm 1. Uterus: Anteverted wnl 2. Endometrium: wnl 3. Right Ovary: 1.6cm dominate follicle 4. Left Ovary: 1.3cm complex cyst seen Spectral, color and waveform doppler imaging shows good arterial and venous flow within the ovaries . 5. Bilateral Adnexa: wnl 6. Posterior cul-de-sac: wnl Heterogeneous uterus. Endometrial stripe within normal limits. No free fluid in pelvic cul-de-sac. Both ovaries seen with scattered peripheral follicles and heterogeneous poorly defined 1.3 cm left ov lupillo lesion could reflect resolving hemorrhagic cyst. IMPRESSION: As above.
[2019-04-11] MEDS ORDERED: cefTRIAXone 1,000 MG VIAL (IM USE) IM STA (11:24)
[2019-04-11 11:58] VITALS: BP 135/76; PULSE 76; RESP 16
== END 2019-04-11 12:04 | disposition home or self-care (01) ==
LOC: EC 09:19
DX: N39.0 Urinary tract infection, site not specified (principal); N93.8 Other specified abnormal uterine and vaginal bleeding; F17.200 Nicotine dependence, unspecified, uncomplicated
CPT/HCPCS: 81001; 81025; 87086; 93975; 76830; 99284; 96372; J0696

== ENCOUNTER 2019-07-16 01:43 | Emergency (ER) | payer OTHER ==
[2019-07-16 01:51] VITALS: TEMP 99.3
[2019-07-16 03:08] LABS: Appearance,Urine Cloudy (Clear); Bilirubin,Urine Negative (Negative); Blood,Urine Negative (Negative); Color,Urine Yellow; Glucose,Urine (UA) Negative (Negative); Ketones,Urine Trace (Negative); Leukocyte Esterase,Urine Negative (Negative); Mucus,Urine Few /hpf; Nitrite,Urine Negative (Negative); Protein,Urine Trace (Negative); RBC,Urine 1 /hpf (0-5); Specific Gravity,Urine 1.031 (1.001-1.035); Squamous Epithelial Cell,Urine 13 /hpf (0-4); WBC,Urine 1 /hpf (0-5)
[2019-07-16] MEDS ORDERED: diphenhydrAMINE 50 MG CAP PO STA (03:17)
[2019-07-16] MEDS ORDERED: ACETAMINOPHEN TAB 500 MG TAB PO STA (03:17)
--- NOTE | 2019-07-16 03:17 | ED ---
General Adult HPI - General Chief complaint: Upper Respiratory Infection Stated complaint: Abdominal Pain, headache, sore throat Time Seen by Provider: 07/16/19 02:37 Source: patient Mode of arrival: ambulatory Limitations: no limitations - History of Present Illness Initial comments: 24-year-old female patient presents to the emergency department today for evaluation of headache, upper respiratory symptoms, and nausea. Patient has been sick with upper respiratory symptoms for the last week. States she started to have some nausea today. Patient is concerned she may be . She denies any fever or chills. Denies any numbness, tingling, dizziness, or weakness. Denies any abnormal vaginal bleeding or discharge. Denies any hematuria, dysuria, urinary frequency, urinary urgency. Patient denies any recent rash, shortness breath, chest pain, abdominal pain, constipation, back pain, numbness, tingling, hematuria, dysuria, urinary urgency, urinary frequency, visual changes, or any other complaints. - Related Data Previous Rx's Medication Instructions Recorded Cephalexin [Keflex] 500 mg PO Q6HR #28 cap 04/11/19 Phenazopyridine [Pyridium] 200 mg PO TID #6 tablet 04/11/19 Pnv No.95/Ferrous Fum/Folic AC 1 each PO DAILY #30 tablet 07/16/19 [ Multivitamin Tablet] Allergies Allergy/AdvReac Type Severity Reaction Status Date / Time No Known Allergies Allergy Verified 07/16/19 01:51 Review of Systems ROS Statement: Those systems with pertinent positive or pertinent negative responses have been documented in the HPI. ROS Other: All systems not noted in ROS Statement are negative. Past Medical History Past Medical History: No Reported History Additional Past Medical History / Comment(s): chronic back pain History of Any Multi-Drug Resistant Organisms: None Reported Past Surgical History: No Surgical Hx Reported Additional Past Surgical History / Comment(s): pt had BC implant removed from left arm in September Past Psychological History: ADD/ADHD, Anxiety, Depression Smoking Status: Current every day smoker Past Alcohol Use History: None Reported Past Drug Use History: Marijuana General Exam Limitations: no limitations General appearance: alert, in no apparent distress, other (Physical well- developed, well-nourished adult female patient in no acute distress. Vital signs upon presentation are temperature 99.3F, pulse 96, respirations 20, blood pressure 99/67, pulse ox 97% on room air.) Eye exam: Present: normal appearance, PERRL, EOMI. Absent: scleral icterus, conjunctival injection, periorbital swelling ENT exam: Present: normal exam, normal oropharynx, mucous membranes moist Respiratory exam: Present: normal lung sounds bilaterally. Absent: respiratory distress, wheezes, rales, rhonchi, stridor Cardiovascular Exam: Present: regular rate, normal rhythm, normal heart sounds. Absent: systolic murmur, diastolic murmur, rubs, gallop, clicks GI/Abdominal exam: Present: soft, normal bowel sounds. Absent: distended, tenderness, guarding, rebound, rigid Neurological exam: Present: alert, oriented X3, CN II-XII intact, other (Strength in all 4 extremities is 5/5.) Psychiatric exam: Present: normal affect, normal mood Skin exam: Present: warm, dry, intact, normal color. Absent: rash Course Vital Signs 07/16/19 01:48 Temperature 99.3 F Pulse Rate 96 Respiratory 20 Rate Blood Pressure 99/67 O2 Sat by Pulse 97 Oximetry Medical Decision Making - Medical Decision Making 24-year-old female patient presents to the emergency department today for evaluation of upper respiratory infection headache. Physical examination is unremarkable. Patient is concerned she department. Urinalysis was obtained and shows no infection. She was positive hCG. I did discuss findings and results with the patient. We did give Tylenol and Benadryl to manage symptoms and headache. She will be given vitamin. She is instructed to follow up with [facility] and primary care physician for recheck as soon as possible. Return parameters discussed in detail. She verbalizes understanding and agrees with this plan. - Lab Data Lab Results 07/16/19 07/16/19 Range/Units 03:00 03:00 Urine Color Yellow Urine Appearance Cloudy H (Clear) Urine pH 6.0 (5.0-8.0) Ur Specific [place] 1.031 (1.001-1.035) Urine Protein Trace H (Negative) Urine Glucose (UA) Negative (Negative) Urine Ketones Trace H (Negative) Urine Blood Negative (Negative) Urine Nitrite Negative (Negative) Urine Bilirubin Negative (Negative) Urine Urobilinogen 2.0 (<2.0) mg/dL Ur Leukocyte Esterase Negative (Negative) Urine RBC 1 (0-5) /hpf Urine WBC 1 (0-5) /hpf Ur Squamous Epith Cells 13 H (0-4) /hpf Urine Mucus Few H (None) /hpf Urine HCG, Qual Detected (Not Detectd) Disposition Clinical Impression: , Upper respiratory infection Disposition: HOME SELF-CARE Condition: Good Instructions (If sedation given, give patient instructions): (ED), Upper Respiratory Infection (ED) Additional Instructions: Increase fluids. Rest. Follow-up with your primary care physician for recheck. Obtain [facility]. Return to the emergency department immediately for any new, worsening, or concerning symptoms. Prescriptions: Pnv No.95/Ferrous Fum/Folic AC [ Multivitamin Tablet] 1 each PO DAILY #30 tablet Is patient prescribed a controlled substance at d/c from ED?: No Referrals: None,Stated [Primary Care Provider] - 1-2 days Time of Disposition: 03:21
[2019-07-16 03:35] VITALS: BP 108/62; PULSE 89; RESP 18
== END 2019-07-16 03:37 | disposition home or self-care (01) ==
LOC: EC 01:43
DX: O99.519 Diseases of the respiratory system complicating pregnancy, unspecified trimester (principal); J06.9 Acute upper respiratory infection, unspecified; O99.89 Other specified diseases and conditions complicating pregnancy, childbirth and the puerperium; R11.0 Nausea; R10.30 Lower abdominal pain, unspecified; O99.330 Smoking (tobacco) complicating pregnancy, unspecified trimester; F17.200 Nicotine dependence, unspecified, uncomplicated; Z3A.00 Weeks of gestation of pregnancy not specified
CPT/HCPCS: 81001; 81025; 99283

== ENCOUNTER 2019-07-16 18:26 | Emergency (ER) | payer OTHER ==
[2019-07-16 18:58] VITALS: BP 103/57
[2019-07-16] MEDS ORDERED: ACETAMINOPHEN TAB 500 MG TAB PO STA (19:24)
--- NOTE | 2019-07-16 19:28 | ED ---
Female Urogenital HPI - General Chief complaint: Vaginal Bleeding Stated complaint: 3 or 4 wks /bleeding Time Seen by Provider: 07/16/19 19:14 Source: patient, RN notes reviewed, old records reviewed Mode of arrival: ambulatory Limitations: no limitations - History of Present Illness Initial comments: Patient is a 24-year-old female who presents emergency department today recently diagnosed with last night, presents emergency department today complaining of vaginal bleeding and cramping today. Patient states that she is early in and her last menstrual period was on June 18. Patient states that she is a female. Patient states that her she does not have an PAEDIATRIC SURGEON at this time. She states that she has had cramping. She also complains of a headache, upper respiratory symptoms. She was told she had a viral illness. She is not taken any Tylenol today. Patient reports that she did call Dr. Pedersen to follow-up that he has not seen him at this time. Last Menstrual Period: 06/18/19 - Related Data Previous Rx's Medication Instructions Recorded Cephalexin [Keflex] 500 mg PO Q6HR #28 cap 04/11/19 Phenazopyridine [Pyridium] 200 mg PO TID #6 tablet 04/11/19 Acetaminophen Tab [Tylenol Tab] 500 mg PO Q4H #20 tablet 07/16/19 Oseltamivir [Tamiflu] 75 mg PO Q12HR #10 cap 07/16/19 Pnv No.95/Ferrous Fum/Folic AC 1 each PO DAILY #30 tablet 07/16/19 [ Multivitamin Tablet] Allergies Allergy/AdvReac Type Severity Reaction Status Date / Time No Known Allergies Allergy Verified 07/16/19 18:58 Review of Systems ROS Statement: Those systems with pertinent positive or pertinent negative responses have been documented in the HPI. ROS Other: All systems not noted in ROS Statement are negative. Past Medical History Past Medical History: No Reported History Additional Past Medical History / Comment(s): chronic back pain, DDD History of Any Multi-Drug Resistant Organisms: None Reported Past Surgical History: No Surgical Hx Reported Additional Past Surgical History / Comment(s): pt had BC implant removed from left arm in September Past Psychological History: ADD/ADHD, Anxiety, Depression Smoking Status: Current every day smoker Past Alcohol Use History: None Reported Past Drug Use History: Marijuana General Exam - General Exam Comments Initial Comments: 24-year-old female. Mild discomfort Limitations: no limitations General appearance: alert, in no apparent distress Head exam: Present: atraumatic, normocephalic, normal inspection Eye exam: Present: normal appearance ENT exam: Present: normal exam, mucous membranes moist Neck exam: Present: normal inspection. Absent: tenderness, meningismus, lymphadenopathy Respiratory exam: Present: normal lung sounds bilaterally. Absent: respiratory distress, wheezes, rales, rhonchi, stridor Cardiovascular Exam: Present: regular rate, normal rhythm, normal heart sounds. Absent: systolic murmur, diastolic murmur, rubs, gallop, clicks GI/Abdominal exam: Present: soft, normal bowel sounds. Absent: distended, tenderness, guarding, rebound, rigid External exam: Present: normal external exam Speculum exam: Present: normal speculum exam, other (Patient had some faint bleeding. No clotting. Cervix is non tender, no adnexal tenderness) By manual exam: Present: normal by manual exam Extremities exam: Present: normal inspection, full ROM, normal capillary refill. Absent: tenderness, pedal edema, joint swelling, calf tenderness Back exam: Present: normal inspection Neurological exam: Present: alert, oriented X3, CN II-XII intact Psychiatric exam: Present: normal affect, normal mood Skin exam: Present: warm, dry, intact, normal color. Absent: rash Course Vital Signs 07/16/19 07/16/19 18:55 22:06 Temperature 102.0 F H 98.9 F Pulse Rate 107 H 89 Respiratory 20 18 Rate Blood Pressure 103/57 O2 Sat by Pulse 98 99 Oximetry Medical Decision Making - Medical Decision Making Patient is a 24-year-old female recently diagnosed with , also complaining of some fever and body aches. She is positive for influenza B. Patient does have some lower pelvic cramping at this time. On exam she did have some minor light pink tinge discharge, but no clotting. Patient had no adnexal tenderness. Her hCG levels 196. Rh+. She is a and is intending to follow with Dr. Pedersen but is not seen at this time. Patient ultrasound did show no intrauterine gestational sac however her hCG level is low at 196. There was a small right-sided ovarian cyst. I didn't further Patient is could be an early ectopic . Discussed the case with Dr. Luke whom is to discuss with Dr. Oreilly. Patient will have her hCG levels redrawn and advised her outpatient follow-up. Discussed taking Tylenol for flu and will write the Patient for Tamiflu sent to her pharmacy. - Lab Data Result diagrams: 07/16/19 19:48 07/16/19 19:48 Lab Results 07/16/19 07/16/19 07/16/19 Range/Units 19:48 19:48 19:48 WBC 4.2 (3.8-10.6) k/uL RBC 4.01 (3.80-5.40) m/uL Hgb 13.2 (11.4-16.0) gm/dL Hct 38.0 (34.0-46.0) % MCV 94.6 (80.0-100.0) fL MCH 32.8 (25.0-35.0) pg MCHC 34.7 (31.0-37.0) g/dL RDW 12.2 (11.5-15.5) % Plt Count 161 (150-450) k/uL Neutrophils % 75 % Lymphocytes % 12 % Monocytes % 9 % Eosinophils % 1 % Basophils % 2 % Neutrophils # 3.2 (1.3-7.7) k/uL Lymphocytes # 0.5 L (1.0-4.8) k/uL Monocytes # 0.4 (0-1.0) k/uL Eosinophils # 0.1 (0-0.7) k/uL Basophils # 0.1 (0-0.2) k/uL Sodium 135 L (137-145) mmol/L Potassium 3.8 (3.5-5.1) mmol/L Chloride 108 H (98-107) mmol/L Carbon Dioxide 20 L (22-30) mmol/L Anion Gap 7 mmol/L BUN 9 (7-17) mg/dL Creatinine 0.62 (0.52-1.04) mg/dL Est GFR (CKD-EPI)AfAm >90 (>60 ml/min/1.73 sqM) Est GFR (CKD-EPI)NonAf >90 (>60 ml/min/1.73 sqM) Glucose 83 (74-99) mg/dL Calcium 9.2 (8.4-10.2) mg/dL HCG, Quant mIU/mL Urine Color Urine Appearance (Clear) Urine pH (5.0-8.0) Ur Specific [place] (1.001-1.035) Urine Protein (Negative) Urine Glucose (UA) (Negative) Urine Ketones (Negative) Urine Blood (Negative) Urine Nitrite (Negative) Urine Bilirubin (Negative) Urine Urobilinogen (<2.0) mg/dL Ur Leukocyte Esterase (Negative) Urine RBC (0-5) /hpf Urine WBC (0-5) /hpf Ur Squamous Epith Cells (0-4) /hpf Urine Bacteria (None) /hpf Hyaline Casts (0-2) /lpf Urine Mucus (None) /hpf Urine HCG, Qual (Not Detectd) Influenza Type A RNA (Not Detectd) Influenza Type B (PCR) (Not Detectd) Blood Type O Positive Blood Type Recheck O Pos Bld Type Recheck Status No 07/16/19 07/16/19 07/16/19 Range/Units 19:48 19:48 19:48 WBC (3.8-10.6) k/uL RBC (3.80-5.40) m/uL Hgb (11.4-16.0) gm/dL Hct (34.0-46.0) % MCV (80.0-100.0) fL MCH (25.0-35.0) pg MCHC (31.0-37.0) g/dL RDW (11.5-15.5) % Plt Count (150-450) k/uL Neutrophils % % Lymphocytes % % Monocytes % % Eosinophils % % Basophils % % Neutrophils # (1.3-7.7) k/uL Lymphocytes # (1.0-4.8) k/uL Monocytes # (0-1.0) k/uL Eosinophils # (0-0.7) k/uL Basophils # (0-0.2) k/uL Sodium (137-145) mmol/L Potassium (3.5-5.1) mmol/L Chloride (98-107) mmol/L Carbon Dioxide (22-30) mmol/L Anion Gap mmol/L BUN (7-17) mg/dL Creatinine (0.52-1.04) mg/dL Est GFR (CKD-EPI)AfAm (>60 ml/min/1.73 sqM) Est GFR (CKD-EPI)NonAf (>60 ml/min/1.73 sqM) Glucose (74-99) mg/dL Calcium (8.4-10.2) mg/dL HCG, Quant mIU/mL Urine Color Yellow Urine Appearance Cloudy H (Clear) Urine pH 6.0 (5.0-8.0) Ur Specific [place] 1.029 (1.001-1.035) Urine Protein Trace H (Negative) Urine Glucose (UA) Negative (Negative) Urine Ketones Trace H (Negative) Urine Blood Negative (Negative) Urine Nitrite Negative (Negative) Urine Bilirubin Negative (Negative) Urine Urobilinogen 3.0 (<2.0) mg/dL Ur Leukocyte Esterase Small H (Negative) Urine RBC 1 (0-5) /hpf Urine WBC 2 (0-5) /hpf Ur Squamous Epith Cells 18 H (0-4) /hpf Urine Bacteria Rare H (None) /hpf Hyaline Casts 1 (0-2) /lpf Urine Mucus Moderate H (None) /hpf Urine HCG, Qual Detected (Not Detectd) Influenza Type A RNA Not Detected (Not Detectd) Influenza Type B (PCR) Detected H (Not Detectd) Blood Type Blood Type Recheck Bld Type Recheck Status 07/16/19 Range/Units 19:48 WBC (3.8-10.6) k/uL RBC (3.80-5.40) m/uL Hgb (11.4-16.0) gm/dL Hct (34.0-46.0) % MCV (80.0-100.0) fL MCH (25.0-35.0) pg MCHC (31.0-37.0) g/dL RDW (11.5-15.5) % Plt Count (150-450) k/uL Neutrophils % % Lymphocytes % % Monocytes % % Eosinophils % % Basophils % % Neutrophils # (1.3-7.7) k/uL Lymphocytes # (1.0-4.8) k/uL Monocytes # (0-1.0) k/uL Eosinophils # (0-0.7) k/uL Basophils # (0-0.2) k/uL Sodium (137-145) mmol/L Potassium (3.5-5.1) mmol/L Chloride (98-107) mmol/L Carbon Dioxide (22-30) mmol/L Anion Gap mmol/L BUN (7-17) mg/dL Creatinine (0.52-1.04) mg/dL Est GFR (CKD-EPI)AfAm (>60 ml/min/1.73 sqM) Est GFR (CKD-EPI)NonAf (>60 ml/min/1.73 sqM) Glucose (74-99) mg/dL Calcium (8.4-10.2) mg/dL HCG, Quant 196.3 mIU/mL Urine Color Urine Appearance (Clear) Urine pH (5.0-8.0) Ur Specific [place] (1.001-1.035) Urine Protein (Negative) Urine Glucose (UA) (Negative) Urine Ketones (Negative) Urine Blood (Negative) Urine Nitrite (Negative) Urine Bilirubin (Negative) Urine Urobilinogen (<2.0) mg/dL Ur Leukocyte Esterase (Negative) Urine RBC (0-5) /hpf Urine WBC (0-5) /hpf Ur Squamous Epith Cells (0-4) /hpf Urine Bacteria (None) /hpf Hyaline Casts (0-2) /lpf Urine Mucus (None) /hpf Urine HCG, Qual (Not Detectd) Influenza Type A RNA (Not Detectd) Influenza Type B (PCR) (Not Detectd) Blood Type Blood Type Recheck Bld Type Recheck Status - Radiology Data Radiology results: report reviewed Ultrasound shows a thick walled cyst in the right ovary. Empty uterus. No evidence of intrauterine gestational sac. Mild free fluid in the pelvis. No convincing sign of ectopic . Disposition Clinical Impression: Influenza, Vaginal bleeding in Disposition: HOME SELF-CARE Condition: Good Instructions (If sedation given, give patient instructions): Threatened Miscarriage (ED), Influenza (DC) Additional Instructions: Please use medication as discussed. Patient denies to take Tylenol every 4-6 hours for fever. Patient can take Tamiflu. Patient advised to follow-up with Dr. Oreilly. Avoid intercourse of heaving lifting. Repeat HCG level in 2 days at outpatient lab. Please follow up with family doctor if symptoms have not improved over the next two days. Please return to the emergency room if your symptoms increase or worsen or for any other concerns. Prescriptions: Oseltamivir [Tamiflu] 75 mg PO Q12HR #10 cap Acetaminophen Tab [Tylenol Tab] 500 mg PO Q4H #20 tablet Is patient prescribed a controlled substance at d/c from ED?: No Referrals: None,Stated [Primary Care Provider] - 1-2 days Cesario Oreilly DO [Doctor of Osteopathic Medicine] - 1-2 days Time of Disposition: 22:35
[2019-07-16 19:59] LABS: Appearance,Urine Cloudy (Clear); Bacteria,Urine Rare /hpf; Bilirubin,Urine Negative (Negative); Blood,Urine Negative (Negative); Color,Urine Yellow; Glucose,Urine (UA) Negative (Negative); Hyaline Casts,Urine 1 /lpf (0-2); Ketones,Urine Trace (Negative); Leukocyte Esterase,Urine Small (Negative); Mucus,Urine Moderate /hpf; Nitrite,Urine Negative (Negative); Protein,Urine Trace (Negative); RBC,Urine 1 /hpf (0-5); Specific Gravity,Urine 1.029 (1.001-1.035); Squamous Epithelial Cell,Urine 18 /hpf (0-4); WBC,Urine 2 /hpf (0-5)
[2019-07-16 20:04] LABS: Basophils # (A) 0.1 k/uL (0-0.2); Basophils % (A) 2 %; Eosinophils # (A) 0.1 k/uL (0-0.7); Eosinophils % (A) 1 %; HGB 13.2 gm/dL (11.4-16.0); Lymphocytes # (A) 0.5 k/uL (1.0-4.8); Lymphocytes % (A) 12 %; MCH 32.8 pg (25.0-35.0); MCHC 34.7 g/dL (31.0-37.0); MCV 94.6 fL (80.0-100.0); Mean Platelet Volume 8.4; Monocytes # (A) 0.4 k/uL (0-1.0); Monocytes % (A) 9 %; Neutrophils # (A) 3.2 k/uL (1.3-7.7); Neutrophils % (A) 75 %; Platelet Count 161 k/uL (150-450); RBC 4.01 m/uL (3.80-5.40); RDW 12.2 % (11.5-15.5); WBC 4.2 k/uL (3.8-10.6)
[2019-07-16 20:11] LABS: African American GFR (CKD) >90 (>60 ml/min/1.73 sqM); Anion Gap 7 mmol/L; Blood Urea Nitrogen 9 mg/dL (7-17); Calcium 9.2 mg/dL (8.4-10.2); Carbon Dioxide 20 mmol/L (22-30); Chloride 108 mmol/L (98-107); Glucose 83 mg/dL (74-99); Non-African American GFR(CKD) >90 (>60 ml/min/1.73 sqM); Potassium 3.8 mmol/L (3.5-5.1); Sodium 135 mmol/L (137-145)
--- NOTE | 2019-07-16 20:47 | US ---
EXAMINATION TYPE: Transabdominal DATE OF EXAM: 07/16/2019 8:23 PM COMPARISON: US, This is first US for this . CLINICAL HISTORY: pain. Pain and spotting x couple days. . EXAM PERFORMED: Transvaginal (TV) and Transabdominal (TA) EXAM MEASUREMENTS: GESTATIONAL AGE / DATING Physician Established: Not yet established. Dates by LMP: (4 weeks/0 days) EDC: 03/24/2020 Dates by First Scan: This is first scan. Dates by Current Scan for: No gestational sac seen at this time. MATERNAL ANATOMY Uterus: 8.4 x 6.4 x 5.3 cm. Anteverted. Hyperechoic area with posterior shadowing and twinkle artifac t seen measurin.3 x 0.3 x 0.2 cm. Subcentimeter anechoic area seen in cervix. Right Ovary: 4.2 x 3.4 x 3.2 cm. Appears enlarged. Complex area seen measurin.1 x 1.5 x 1.8 Area of mixed echogenicity and peripheral vascularity seen measurin.9 x 1.9 x 2.1 cm. Left Ovary: 2.7 x 1.9 x 1.9 cm. Appears to be wnl Post CDS / Adnexa: Free fluid is seen in bilateral adnexa and in CDS Presence of free fluid: Yes, in CDS and bilateral adnexa. Presence of corpus luteal cyst: Area of mixed echogenicity and peripheral vascularity seen right ovar y measurin.9 x 1.9 x 2.1 cm. GESTATION / SURVEY IUP: No IUP seen at this time. Date of LMP: 06/18/2019 Beta HcG (if available): Detected IMPRESSION: There is thick walled cyst on the right ovary. Empty uterus. No evidence of intrauterine gestational sac. Mild free fluid in the pelvis. No convincing sign of ectopic .
[2019-07-16 22:07] VITALS: PULSE 89; RESP 18; TEMP 98.9
[2019-07-17 13:32] LABS: N. gonorrhoeae,PCR Negative (Neg,Equiv); Neisseria Source Vagina
[2019-07-17 13:36] LABS: C. trachomatis,PCR Negative (Neg,Equiv); Chlamydia trachomatis Source Urine
== END 2019-07-16 22:43 | disposition home or self-care (01) ==
LOC: EC 18:26
DX: O20.9 Hemorrhage in early pregnancy, unspecified (principal); O99.511 Diseases of the respiratory system complicating pregnancy, first trimester; J10.1 Influenza due to other identified influenza virus with other respiratory manifestations; Z67.90 Unspecified blood type, Rh positive; O99.89 Other specified diseases and conditions complicating pregnancy, childbirth and the puerperium; N83.201 Unspecified ovarian cyst, right side; O99.331 Smoking (tobacco) complicating pregnancy, first trimester; F17.200 Nicotine dependence, unspecified, uncomplicated; Z3A.01 Less than 8 weeks gestation of pregnancy
CPT/HCPCS: 36415; 76801; 76817; 80048; 81001; 81025; 84702; 85025; 86900; 86901; 87070; 87491; 87502; 87591; 87808; 99284

== ENCOUNTER → 2019-07-18 | Outpatient (CLI) | payer OTHER | END | disposition home or self-care (01) | LOC: LABWHC1 17:11 | PROVIDERS: ATTEND Physician Assistant Medical | DX: O20.0 Threatened abortion (principal) | CPT/HCPCS: 36415; 84702 ==

== ENCOUNTER 2019-10-09 15:22 | Emergency (ER) | payer OTHER ==
[2019-10-09 16:28] LABS: Basophils % (A) 0 %; Eosinophils # (A) 0.1 k/uL (0-0.7); Eosinophils % (A) 1 %; HGB 12.4 gm/dL (11.4-16.0); Lymphocytes # (A) 1.8 k/uL (1.0-4.8); Lymphocytes % (A) 12 %; MCH 33.8 pg (25.0-35.0); MCHC 35.4 g/dL (31.0-37.0); MCV 95.4 fL (80.0-100.0); Mean Platelet Volume 7.4; Monocytes # (A) 0.4 k/uL (0-1.0); Monocytes % (A) 3 %; Neutrophils # (A) 12.2 k/uL (1.3-7.7); Neutrophils % (A) 83 %; Platelet Count 230 k/uL (150-450); RBC 3.67 m/uL (3.80-5.40); RDW 12.9 % (11.5-15.5); WBC 14.7 k/uL (3.8-10.6)
[2019-10-09 16:37] LABS: Appearance,Urine Turbid (Clear); Bacteria,Urine Rare /hpf; Bilirubin,Urine Negative (Negative); Blood,Urine Negative (Negative); Budding Yeast,Urine Many /hpf; Color,Urine Yellow; Glucose,Urine (UA) Negative (Negative); Hyaline Casts,Urine 2 /lpf (0-2); Ketones,Urine Negative (Negative); Leukocyte Esterase,Urine Negative (Negative); Mucus,Urine Rare /hpf; Nitrite,Urine Negative (Negative); PH, Urine 7.5 (5.0-8.0); Protein,Urine Negative (Negative); Specific Gravity,Urine 1.018 (1.001-1.035); Squamous Epithelial Cell,Urine 14 /hpf (0-4); Urobilinogen,Urine <2.0 mg/dL (<2.0); WBC,Urine 8 /hpf (0-5)
[2019-10-09 16:38] LABS: ALT 9 U/L (4-34); AST 18 U/L (14-36); African American GFR (CKD) >90 (>60 ml/min/1.73 sqM); Albumin 3.7 g/dL (3.5-5.0); Alkaline Phosphatase 40 U/L (38-126); Anion Gap 5 mmol/L; Blood Urea Nitrogen 7 mg/dL (7-17); Calcium 9.1 mg/dL (8.4-10.2); Carbon Dioxide 21 mmol/L (22-30); Chloride 106 mmol/L (98-107); Glucose 69 mg/dL (74-99); Non-African American GFR(CKD) >90 (>60 ml/min/1.73 sqM); Potassium 3.8 mmol/L (3.5-5.1); Sodium 132 mmol/L (137-145); Total Bilirubin 0.4 mg/dL (0.2-1.3); Total Protein 6.3 g/dL (6.3-8.2)
--- NOTE | 2019-10-09 17:15 | US ---
EXAMINATION TYPE: US OB >= 14 wk fetus DATE OF EXAM: 10/09/2019 COMPARISON: None CLINICAL HISTORY: abdominal pain vomiting, cramping TECHNIQUE: Transabdominal (TA) GESTATIONAL AGE / DATING Physician Established: (16 weeks/1 days) EDC: 03/24/20 Dates by LMP: (16 weeks/1 days) EDC: 03/24/20 Dates by First Scan: No previous this is first scan Dates by Current Scan: (16 weeks/5 days) EDC: 03/20/20 SURVEY IUP: Single PLACENTA: Anterior PREVIA: Low Lying JENN: 11.1 cm Normal CERVICAL LENGTH (transabdominal: norm > 3.0cm): 3.3 cm BIOMETRY PRESENTATION: Breech LIE: Longitudinal BPD: 3.5 cm 17 weeks / 0 days HC: 12.9 cm 16 weeks / 4 days AC: 10.5 cm 16 weeks / 4 days FL: 2.1 cm 16 weeks / 2 days ESTIMATED WEIGHT IN GRAMS: 154 grams ESTIMATED WEIGHT IN LBS/OZ: 0 lbs. 5 oz. WEIGHT PERCENTAGE BASED ON ESTABLISHED DATES: 57% HC/AC: 1.22 Normal FL/AC: 20% Normal HEART RATE: 156 bpm RHYTHM: Normal IMPRESSION: Single viable intrauterine in breech presentation. No distinct abnormality seen.
[2019-10-09 17:20] LABS: HCG,Quantitative Serum 28239.1 mIU/mL
--- NOTE | 2019-10-09 17:31 | ED ---
Abdominal Pain HPI - General Chief Complaint: Abdominal Pain Stated Complaint: 16wks preg, cramping, NVD Time Seen by Provider: 10/09/19 15:37 Source: patient Mode of arrival: ambulatory Limitations: no limitations - History of Present Illness Initial Comments: Patient is a 24-year-old female presenting to the emergency Department with complaints of lower abdominal cramping and low back pain 2 days. Patient is currently 16 weeks . Her DYNAMICIST is Dr. Farley. She is . Patient does complain of mild dysuria. She denies any vaginal bleeding or discharge. She does admit to mild nausea and one episode of vomiting this morning. Patient states she has had intermittent nausea throughout this . She denies any recent fever, chills, cough, chest pain, diarrhea. She has no other complaints at this time. Upon arrival to the ER, her vitals are stable, afebrile. - Related Data Previous Rx's Medication Instructions Recorded Pnv No.95/Ferrous Fum/Folic AC 1 each PO DAILY #30 tablet 07/16/19 [ Multivitamin Tablet] Cephalexin [Keflex] 500 mg PO BID 5 Days #10 cap 10/09/19 Metoclopramide [Reglan] 10 mg PO TID PRN #15 tab 10/09/19 Allergies Allergy/AdvReac Type Severity Reaction Status Date / Time No Known Allergies Allergy Verified 10/09/19 17:08 Review of Systems ROS Statement: Those systems with pertinent positive or pertinent negative responses have been documented in the HPI. ROS Other: All systems not noted in ROS Statement are negative. Past Medical History Past Medical History: No Reported History Additional Past Medical History / Comment(s): chronic back pain, DDD History of Any Multi-Drug Resistant Organisms: None Reported Past Surgical History: No Surgical Hx Reported Additional Past Surgical History / Comment(s): pt had BC implant removed from left arm in September Past Psychological History: ADD/ADHD, Anxiety, Depression Smoking Status: Current every day smoker Past Alcohol Use History: None Reported Past Drug Use History: Marijuana General Exam - General Exam Comments Initial Comments: GENERAL: Well-appearing, well-nourished and in no acute distress. HEAD: Atraumatic, normocephalic. EYES: Pupils equal round and reactive to light, extraocular movements intact, sclera anicteric, conjunctiva are normal. ENT: TMs normal, nares patent, oropharynx clear without exudates. Moist mucous membranes. NECK: Normal range of motion, supple without lymphadenopathy or JVD. LUNGS: Breath sounds clear to auscultation bilaterally and equal. No wheezes rales or rhonchi. HEART: Regular rate and rhythm without murmurs, rubs or gallops. ABDOMEN: Soft, nontender, normoactive bowel sounds. No guarding, no rebound. No masses appreciated. : Deferred, declined. EXTREMITIES: Normal range of motion, no pitting or edema. No clubbing or cyanosis. NEUROLOGICAL: Normal speech, normal gait. PSYCH: Normal mood, normal affect. SKIN: Warm, Dry, normal turgor, no rashes or lesions noted. Limitations: no limitations Course Vital Signs 10/09/19 10/09/19 15:27 18:17 Temperature 97.8 F 98.2 F Pulse Rate 79 72 Respiratory 20 18 Rate Blood Pressure 116/71 110/64 O2 Sat by Pulse 99 99 Oximetry Medical Decision Making - Medical Decision Making Patient is a 24-year-old female, currently 16 weeks , complaining of lower abdominal cramping as well as low back pain 2 days. Associated nausea and one episode of vomiting this morning. Vitals are stable, afebrile. Exam is unremarkable. Labs reveal leukocytosis at 14.7, mild hypoglycemia at 69. Patient was eating upon recheck. Urine shows bacteria as well as WBC clumps. Ultrasound reveals a single IUP, heart rate 156. No abnormalities. I did recommend a pelvic exam however patient declined at this time. I discussed with patient that she most likely has a UTI. She will be started on Keflex as well as given Reglan for her nausea. Patient does have an appointment with her DYNAMICIST in 2 days. She is stable for discharge and is in agreement with this plan of care. Return parameters were discussed with the patient and she verbalized understanding. Case discussed with Dr. Vaca. - Lab Data Result diagrams: 10/09/19 16:08 10/09/19 16:08 Lab Results 10/09/19 10/09/19 10/09/19 Range/Units 16:08 16:08 16:08 WBC 14.7 H (3.8-10.6) k/uL RBC 3.67 L (3.80-5.40) m/uL Hgb 12.4 (11.4-16.0) gm/dL Hct 35.0 (34.0-46.0) % MCV 95.4 (80.0-100.0) fL MCH 33.8 (25.0-35.0) pg MCHC 35.4 (31.0-37.0) g/dL RDW 12.9 (11.5-15.5) % Plt Count 230 (150-450) k/uL Neutrophils % 83 % Lymphocytes % 12 % Monocytes % 3 % Eosinophils % 1 % Basophils % 0 % Neutrophils # 12.2 H (1.3-7.7) k/uL Lymphocytes # 1.8 (1.0-4.8) k/uL Monocytes # 0.4 (0-1.0) k/uL Eosinophils # 0.1 (0-0.7) k/uL Basophils # 0.0 (0-0.2) k/uL Sodium 132 L (137-145) mmol/L Potassium 3.8 (3.5-5.1) mmol/L Chloride 106 (98-107) mmol/L Carbon Dioxide 21 L (22-30) mmol/L Anion Gap 5 mmol/L BUN 7 (7-17) mg/dL Creatinine 0.39 L (0.52-1.04) mg/dL Est GFR (CKD-EPI)AfAm >90 (>60 ml/min/1.73 sqM) Est GFR (CKD-EPI)NonAf >90 (>60 ml/min/1.73 sqM) Glucose 69 L (74-99) mg/dL Calcium 9.1 (8.4-10.2) mg/dL Total Bilirubin 0.4 (0.2-1.3) mg/dL AST 18 (14-36) U/L ALT 9 (4-34) U/L Alkaline Phosphatase 40 (38-126) U/L Total Protein 6.3 (6.3-8.2) g/dL Albumin 3.7 (3.5-5.0) g/dL HCG, Quant 43735.1 mIU/mL Urine Color Yellow Urine Appearance Turbid H (Clear) Urine pH 7.5 (5.0-8.0) Ur Specific [place] 1.018 (1.001-1.035) Urine Protein Negative (Negative) Urine Glucose (UA) Negative (Negative) Urine Ketones Negative (Negative) Urine Blood Negative (Negative) Urine Nitrite Negative (Negative) Urine Bilirubin Negative (Negative) Urine Urobilinogen <2.0 (<2.0) mg/dL Ur Leukocyte Esterase Negative (Negative) Urine WBC 8 H (0-5) /hpf Urine WBC Clumps Few H (None) /hpf Ur Squamous Epith Cells 14 H (0-4) /hpf Urine Bacteria Rare H (None) /hpf Hyaline Casts 2 (0-2) /lpf Urine Mucus Rare H (None) /hpf Urine Yeast (Budding) Many H (None) /hpf Blood Type Blood Type Recheck Bld Type Recheck Status 10/09/19 Range/Units 16:08 WBC (3.8-10.6) k/uL RBC (3.80-5.40) m/uL Hgb (11.4-16.0) gm/dL Hct (34.0-46.0) % MCV (80.0-100.0) fL MCH (25.0-35.0) pg MCHC (31.0-37.0) g/dL RDW (11.5-15.5) % Plt Count (150-450) k/uL Neutrophils % % Lymphocytes % % Monocytes % % Eosinophils % % Basophils % % Neutrophils # (1.3-7.7) k/uL Lymphocytes # (1.0-4.8) k/uL Monocytes # (0-1.0) k/uL Eosinophils # (0-0.7) k/uL Basophils # (0-0.2) k/uL Sodium (137-145) mmol/L Potassium (3.5-5.1) mmol/L Chloride (98-107) mmol/L Carbon Dioxide (22-30) mmol/L Anion Gap mmol/L BUN (7-17) mg/dL Creatinine (0.52-1.04) mg/dL Est GFR (CKD-EPI)AfAm (>60 ml/min/1.73 sqM) Est GFR (CKD-EPI)NonAf (>60 ml/min/1.73 sqM) Glucose (74-99) mg/dL Calcium (8.4-10.2) mg/dL Total Bilirubin (0.2-1.3) mg/dL AST (14-36) U/L ALT (4-34) U/L Alkaline Phosphatase (38-126) U/L Total Protein (6.3-8.2) g/dL Albumin (3.5-5.0) g/dL HCG, Quant mIU/mL Urine Color Urine Appearance (Clear) Urine pH (5.0-8.0) Ur Specific [place] (1.001-1.035) Urine Protein (Negative) Urine Glucose (UA) (Negative) Urine Ketones (Negative) Urine Blood (Negative) Urine Nitrite (Negative) Urine Bilirubin (Negative) Urine Urobilinogen (<2.0) mg/dL Ur Leukocyte Esterase (Negative) Urine WBC (0-5) /hpf Urine WBC Clumps (None) /hpf Ur Squamous Epith Cells (0-4) /hpf Urine Bacteria (None) /hpf Hyaline Casts (0-2) /lpf Urine Mucus (None) /hpf Urine Yeast (Budding) (None) /hpf Blood Type O Positive Blood Type Recheck O Pos Bld Type Recheck Status No Disposition Clinical Impression: Bilateral lower abdominal cramping, UTI (urinary tract infection) during , Nausea Disposition: HOME SELF-CARE Condition: Stable Instructions (If sedation given, give patient instructions): Urinary Tract Infection in (ED) Additional Instructions: Please return to the Emergency Department if symptoms worsen or any other concerns. Follow-up with Dr. Farley for any concerns. Prescriptions: Cephalexin [Keflex] 500 mg PO BID 5 Days #10 cap Metoclopramide [Reglan] 10 mg PO TID PRN #15 tab PRN Reason: Nausea Is patient prescribed a controlled substance at d/c from ED?: No Referrals: None,Stated [Primary Care Provider] - 1-2 days
[2019-10-09 18:18] VITALS: BP 110/64; PULSE 72; RESP 18; TEMP 98.2
== END 2019-10-09 18:19 | disposition home or self-care (01) ==
LOC: EC 15:22
DX: O23.42 Unspecified infection of urinary tract in pregnancy, second trimester (principal); O21.9 Vomiting of pregnancy, unspecified; O26.892 Other specified pregnancy related conditions, second trimester; R10.31 Right lower quadrant pain; R10.32 Left lower quadrant pain; O99.332 Smoking (tobacco) complicating pregnancy, second trimester; F17.200 Nicotine dependence, unspecified, uncomplicated; Z3A.16 16 weeks gestation of pregnancy
CPT/HCPCS: 36415; 76805; 80053; 81001; 84702; 85025; 86900; 86901; 99284

== ENCOUNTER 2019-10-27 05:23 | Emergency (ER) | payer OTHER ==
[2019-10-27 05:32] VITALS: TEMP 97.8
[2019-10-27] MEDS ORDERED: SODIUM CHLORIDE 0.9% 500 ML 500 ML IV STA (05:53)
[2019-10-27] MEDS ORDERED: ACETAMINOPHEN TAB 325 MG TAB PO STA (05:53)
--- NOTE | 2019-10-27 06:05 | ED ---
Abdominal Pain HPI - General Chief Complaint: Abdominal Pain Stated Complaint: ABD PAIN, 18 weeks Time Seen by Provider: 10/27/19 05:56 Source: patient Mode of arrival: ambulatory Limitations: no limitations - History of Present Illness MD Complaint: abdominal pain -: hour(s) Location: LLQ Radiation: none Migration to: no migration Severity: moderate Quality: cramping Consistency: colicky Improves With: nothing Worsens With: nothing Associated Symptoms: nausea - Related Data LMP (females 10-50): Patient : Yes Number of weeks : 18 Previous Rx's Medication Instructions Recorded Pnv No.95/Ferrous Fum/Folic AC 1 each PO DAILY #30 tablet 07/16/19 [ Multivitamin Tablet] Cephalexin [Keflex] 500 mg PO BID 5 Days #10 cap 10/09/19 Metoclopramide [Reglan] 10 mg PO TID PRN #15 tab 10/09/19 Allergies Allergy/AdvReac Type Severity Reaction Status Date / Time No Known Allergies Allergy Verified 10/27/19 05:32 Review of Systems ROS Statement: Those systems with pertinent positive or pertinent negative responses have been documented in the HPI. ROS Other: All systems not noted in ROS Statement are negative. Constitutional: Denies: fever, chills Respiratory: Denies: cough, dyspnea Cardiovascular: Denies: chest pain, palpitations Gastrointestinal: Reports: abdominal pain, nausea. Denies: vomiting, diarrhea, constipation, melena, hematochezia Genitourinary: Denies: dysuria, hematuria, discharge, abnormal menses Musculoskeletal: Denies: back pain Skin: Denies: rash Neurological: Denies: headache, weakness, numbness Past Medical History Past Medical History: No Reported History Additional Past Medical History / Comment(s): chronic back pain, DDD History of Any Multi-Drug Resistant Organisms: None Reported Past Surgical History: No Surgical Hx Reported Additional Past Surgical History / Comment(s): pt had BC implant removed from left arm in September Past Psychological History: ADD/ADHD, Anxiety, Depression Smoking Status: Current every day smoker Past Alcohol Use History: None Reported Past Drug Use History: Marijuana General Exam Limitations: no limitations General appearance: alert, in no apparent distress Head exam: Present: atraumatic, normocephalic Eye exam: Present: normal appearance. Absent: scleral icterus, conjunctival injection Neck exam: Present: normal inspection Respiratory exam: Present: normal lung sounds bilaterally. Absent: respiratory distress, wheezes, rales, rhonchi, stridor Cardiovascular Exam: Present: regular rate, normal rhythm, normal heart sounds. Absent: systolic murmur, diastolic murmur, rubs, gallop GI/Abdominal exam: Present: soft, normal bowel sounds, other (Gravid uterus palpable to below umbilicus). Absent: distended, tenderness, guarding, rebound, rigid, mass, pulsatile mass, hernia Extremities exam: Present: normal inspection, normal capillary refill. Absent: pedal edema, calf tenderness Back exam: Present: normal inspection. Absent: CVA tenderness (R), CVA tendern ess (L) Neurological exam: Present: alert Skin exam: Present: warm, dry, intact, normal color. Absent: rash Course Vital Signs 10/27/19 05:29 Temperature 97.8 F Pulse Rate 82 Respiratory 22 Rate Blood Pressure 113/75 O2 Sat by Pulse 100 Oximetry Medical Decision Making - Lab Data Result diagrams: 10/27/19 06:05 10/27/19 06:05 Lab Results 10/27/19 10/27/19 10/27/19 Range/Units 06:05 06:05 06:05 WBC 13.4 H (3.8-10.6) k/uL RBC 3.71 L (3.80-5.40) m/uL Hgb 12.6 (11.4-16.0) gm/dL Hct 36.8 (34.0-46.0) % MCV 99.2 (80.0-100.0) fL MCH 34.0 (25.0-35.0) pg MCHC 34.2 (31.0-37.0) g/dL RDW 13.1 (11.5-15.5) % Plt Count 240 (150-450) k/uL Neutrophils % 80 % Lymphocytes % 14 % Monocytes % 4 % Eosinophils % 2 % Basophils % 0 % Neutrophils # 10.7 H (1.3-7.7) k/uL Lymphocytes # 1.8 (1.0-4.8) k/uL Monocytes # 0.5 (0-1.0) k/uL Eosinophils # 0.2 (0-0.7) k/uL Basophils # 0.0 (0-0.2) k/uL Sodium 134 L (137-145) mmol/L Potassium 4.3 (3.5-5.1) mmol/L Chloride 107 (98-107) mmol/L Carbon Dioxide 22 (22-30) mmol/L Anion Gap 5 mmol/L BUN 8 (7-17) mg/dL Creatinine 0.44 L (0.52-1.04) mg/dL Est GFR (CKD-EPI)AfAm >90 (>60 ml/min/1.73 sqM) Est GFR (CKD-EPI)NonAf >90 (>60 ml/min/1.73 sqM) Glucose 81 (74-99) mg/dL Calcium 9.2 (8.4-10.2) mg/dL Total Bilirubin 0.2 (0.2-1.3) mg/dL AST 24 (14-36) U/L ALT 18 (4-34) U/L Alkaline Phosphatase 46 (38-126) U/L Total Protein 6.3 (6.3-8.2) g/dL Albumin 3.6 (3.5-5.0) g/dL Urine Color Light Yellow Urine Appearance Cloudy H (Clear) Urine pH 7.0 (5.0-8.0) Ur Specific Freeman 1.013 (1.001-1.035) Urine Protein Negative (Negative) Urine Glucose (UA) Negative (Negative) Urine Ketones Negative (Negative) Urine Blood Negative (Negative) Urine Nitrite Negative (Negative) Urine Bilirubin Negative (Negative) Urine Urobilinogen <2.0 (<2.0) mg/dL Ur Leukocyte Esterase Negative (Negative) Urine RBC 1 (0-5) /hpf Urine WBC 3 (0-5) /hpf Ur Squamous Epith Cells 5 H (0-4) /hpf Amorphous Sediment Rare H (None) /hpf Urine Mucus Rare H (None) /hpf Disposition Clinical Impression: Abdominal pain during intrauterine Disposition: HOME SELF-CARE Condition: Good Instructions (If sedation given, give patient instructions): Abdominal Pain in (ED) Is patient prescribed a controlled substance at d/c from ED?: No Referrals: None,Stated [Primary Care Provider] - 1-2 days
[2019-10-27 06:36] LABS: Basophils % (A) 0 %; Eosinophils # (A) 0.2 k/uL (0-0.7); Eosinophils % (A) 2 %; HCT 36.8 % (34.0-46.0); HGB 12.6 gm/dL (11.4-16.0); Lymphocytes # (A) 1.8 k/uL (1.0-4.8); Lymphocytes % (A) 14 %; MCHC 34.2 g/dL (31.0-37.0); MCV 99.2 fL (80.0-100.0); Mean Platelet Volume 7.4; Monocytes # (A) 0.5 k/uL (0-1.0); Monocytes % (A) 4 %; Neutrophils # (A) 10.7 k/uL (1.3-7.7); Neutrophils % (A) 80 %; Platelet Count 240 k/uL (150-450); RBC 3.71 m/uL (3.80-5.40); RDW 13.1 % (11.5-15.5); WBC 13.4 k/uL (3.8-10.6)
[2019-10-27 06:41] LABS: ALT 18 U/L (4-34); AST 24 U/L (14-36); African American GFR (CKD) >90 (>60 ml/min/1.73 sqM); Albumin 3.6 g/dL (3.5-5.0); Alkaline Phosphatase 46 U/L (38-126); Anion Gap 5 mmol/L; Blood Urea Nitrogen 8 mg/dL (7-17); Calcium 9.2 mg/dL (8.4-10.2); Carbon Dioxide 22 mmol/L (22-30); Chloride 107 mmol/L (98-107); Glucose 81 mg/dL (74-99); Non-African American GFR(CKD) >90 (>60 ml/min/1.73 sqM); Potassium 4.3 mmol/L (3.5-5.1); Sodium 134 mmol/L (137-145); Total Bilirubin 0.2 mg/dL (0.2-1.3); Total Protein 6.3 g/dL (6.3-8.2)
[2019-10-27 06:51] LABS: Amorphous Sediment,Urine Rare /hpf; Appearance,Urine Cloudy (Clear); Bilirubin,Urine Negative (Negative); Blood,Urine Negative (Negative); Color,Urine Light Yellow; Glucose,Urine (UA) Negative (Negative); Ketones,Urine Negative (Negative); Leukocyte Esterase,Urine Negative (Negative); Mucus,Urine Rare /hpf; Nitrite,Urine Negative (Negative); Protein,Urine Negative (Negative); RBC,Urine 1 /hpf (0-5); Specific Gravity,Urine 1.013 (1.001-1.035); Squamous Epithelial Cell,Urine 5 /hpf (0-4); Urobilinogen,Urine <2.0 mg/dL (<2.0); WBC,Urine 3 /hpf (0-5)
[2019-10-27 07:20] VITALS: BP 113/63; PULSE 77; RESP 18
== END 2019-10-27 07:15 | disposition home or self-care (01) ==
LOC: EC 05:23
DX: O99.89 Other specified diseases and conditions complicating pregnancy, childbirth and the puerperium (principal); R10.9 Unspecified abdominal pain; R11.0 Nausea; O99.332 Smoking (tobacco) complicating pregnancy, second trimester; F17.200 Nicotine dependence, unspecified, uncomplicated; Z3A.18 18 weeks gestation of pregnancy
CPT/HCPCS: 36415; 80053; 81001; 85025; 96360; 99284

== ENCOUNTER → 2020-02-14 | Outpatient (CLI) | payer OTHER | END | disposition home or self-care (01) | LOC: LABWHC1 13:50 | PROVIDERS: ATTEND Obstetrics & Gynecology | DX: U07.1 COVID-19 (principal) | CPT/HCPCS: U0003; C9803 ==

== ENCOUNTER 2020-02-22 19:16 | Outpatient (CLI) | payer OTHER ==
[2020-02-22 20:21] LABS: Amorphous Sediment,Urine Occasional /hpf; Appearance,Urine Cloudy (Clear); Bacteria,Urine Rare /hpf; Bilirubin,Urine Negative (Negative); Blood,Urine Negative (Negative); Color,Urine Yellow; Glucose,Urine (UA) Negative (Negative); Hyaline Casts,Urine 1 /lpf (0-2); Ketones,Urine 1+ (Negative); Leukocyte Esterase,Urine Trace (Negative); Mucus,Urine Occasional /hpf; Nitrite,Urine Negative (Negative); PH, Urine 7.5 (5.0-8.0); Protein,Urine Negative (Negative); RBC,Urine 1 /hpf (0-5); Specific Gravity,Urine 1.013 (1.001-1.035); Squamous Epithelial Cell,Urine 3 /hpf (0-4); Urobilinogen,Urine <2.0 mg/dL (<2.0); WBC,Urine 4 /hpf (0-5)
[2020-02-22 21:09] VITALS: BP 121/64; PULSE 80; RESP 16; TEMP 97.3
--- NOTE | 2020-02-26 11:35 | P.MSEPDOC ---
Presenting Problems - Arrival Data Date of Arrival on Unit: 02/22/20 Time of Arrival on Unit: 19:16 Mode of Transport: Wheelchair - Complaint OB-Reason for Admission/Chief Complaint: Pain Comment: Pt states hip pain 02/03 has also been nausous today. Pt denies contractions. Medical History - Information : 2 Para: 1 Term: 1 : 0 Abortions: Spontaneous or Elective: 0 Number of Living Children: 1 - Gestational Age Gestational Age by TAJ (wks/days): 35 Weeks and 4 Days - History Complications: Smoker, Hx. Substance Abuse Comment: THC Review of Systems - Review of Systems Constitutional: No problems Breast: No problems ENT: No problems Cardiovascular: No problems Respiratory: No problems Gastrointestinal: No problems Genitourinary: No problems Musculoskeletal: No problems Neurological: No problems Skin: No problems Vital Signs - Temperature Temperature: 97.3 F Temperature Source: Temporal Artery Scan - Pulse Right Brachial Pulse Rate: 80 Pulse Assessment Method: Automatic Cuff - Respirations Respiratory Rate: 16 Oxygen Delivery Method: Room Air O2 Sat by Pulse Oximetry: 99 - Blood Pressure Right Arm Blood Pressure: 121/64 Blood Pressure Mean: 83 Blood Pressure Source: Automatic Cuff Medical Screen Scoring (Pre) - Cervical Exam Dilation: 1-3 cm = 1 Effacement: More than 50% = 2 Membranes: Intact - Uterine Contractions Frequency: > 5 minutes apart = 1 Duration: > 40 seconds = 2 Intensity: N/A - Maternal Vital Signs Maternal Temperature: N/A Signs of Preeclampsia: N/A Maternal Respirations: N/A - Maternal Trauma Maternal Trauma: N/A - Assessment - Baby A Baseline FHR: 135 Heart Rate - NICHD Category: Category I (Normal) = 0 - Total Score - Baby A Total Score - Baby A: 6 - Total Score - Baby B Total Score - Baby B: 6 - Total Score - Baby C Total Score - Baby C: 6 - Level of Risk - Baby A Level of Risk - Baby A: Medium (6-9) - Level of Risk - Baby B Level of Risk - Baby B: Medium (6-9) - Level of Risk - Baby C Level of Risk - Baby C: Medium (6-9) Physician Notification (Pre) - Physician Notified Physician Notified Date: 02/22/20 Physician Notified Time: 20:40 New Order Received: Yes - Notification Comment Comment: Reported irregular contractions, fhr, vag exam /- same as last check a few weeks ago, UA pt dehydrated, weekly NST due to circumvallet placenta. Next appointment is Tuesday02/25/[address] Farley. Orders to d/c pt home, increase fluids and rest until follow up appointment. Disposition - Disposition OB Disposition: Discharge to home, Written follow up instructions reviewed Discharge Date: 02/22/20 Discharge Time: 20:44 I agree with the RN Medical Screening Exam: Yes Risk & Benefit of care provided described in d/c instruction: Yes Diagnosis: hip pain in
== END 2020-02-22 20:44 | disposition home or self-care (01) ==
LOC: FBPOP 19:16
PROVIDERS: ATTEND Obstetrics & Gynecology
DX: O26.93 Pregnancy related conditions, unspecified, third trimester (principal); Z3A.35 35 weeks gestation of pregnancy
CPT/HCPCS: 59025; 81001; G0463; 99213

== ENCOUNTER 2020-03-05 11:47 | Outpatient (CLI) | payer OTHER ==
[2020-03-05 12:40] LABS: Appearance,Urine Cloudy (Clear); Bacteria,Urine Rare /hpf; Bilirubin,Urine Negative (Negative); Blood,Urine Negative (Negative); Color,Urine Yellow; Glucose,Urine (UA) Negative (Negative); Ketones,Urine 1+ (Negative); Leukocyte Esterase,Urine Large (Negative); Mucus,Urine Many /hpf; Nitrite,Urine Negative (Negative); Protein,Urine 1+ (Negative); RBC,Urine 2 /hpf (0-5); Specific Gravity,Urine 1.027 (1.001-1.035); Squamous Epithelial Cell,Urine 23 /hpf (0-4); WBC,Urine 15 /hpf (0-5)
[2020-03-05 13:15] VITALS: BP 118/67; PULSE 83; RESP 18; TEMP 98
--- NOTE | 2020-03-13 19:16 | P.MSEPDOC ---
Presenting Problems - Arrival Data Date of Arrival on Unit: 03/05/20 Time of Arrival on Unit: 11:30 Mode of Transport: Ambulatory - Complaint OB-Reason for Admission/Chief Complaint: Pain Medical History - Information : 2 Para: 1 Term: 1 : 0 Abortions: Spontaneous or Elective: 0 Number of Living Children: 1 - Gestational Age Gestational Age by TAJ (wks/days): 37 Weeks and 2 Days Review of Systems - Review of Systems Constitutional: No problems Breast: No problems ENT: No problems Cardiovascular: No problems Respiratory: No problems Gastrointestinal: Diarrhea Genitourinary: No problems Musculoskeletal: No problems Neurological: No problems Skin: No problems Comment: C/O nausea, vomiting, diarrhea, fever, lightheadedness and cramping yesterday. States severe vaginal pain today. Vital Signs - Temperature Temperature: 98.0 F Temperature Source: Oral - Pulse Pulse Oximetery Pulse Rate: 83 Pulse Assessment Method: Pulse Oximetry - Respirations Respiratory Rate: 18 O2 Sat by Pulse Oximetry: 98 - Blood Pressure Right Arm Sitting Blood Pressure: 118/67 Blood Pressure Mean: 84 Blood Pressure Source: Automatic Cuff Medical Screen Scoring (Pre) - Cervical Exam Dilation: 1-3 cm = 1 Membranes: Intact - Uterine Contractions Frequency: > 5 minutes apart = 1 Duration: N/A Intensity: N/A - Maternal Vital Signs Maternal Temperature: N/A Maternal Blood Pressure: N/A Signs of Preeclampsia: Nausea/Vomiting = 1 Maternal Respirations: N/A - Maternal Trauma Maternal Trauma: N/A - Assessment - Baby A Baseline FHR: 140 Heart Rate - NICHD Category: Category I (Normal) = 0 NST: Reactive Position: N/A Station: N/A - Total Score - Baby A Total Score - Baby A: 3 - Total Score - Baby B Total Score - Baby B: 3 - Total Score - Baby C Total Score - Baby C: 3 - Level of Risk - Baby A Level of Risk - Baby A: Low (0-5) - Level of Risk - Baby B Level of Risk - Baby B: Low (0-5) - Level of Risk - Baby C Level of Risk - Baby C: Low (0-5) Physician Notification (Pre) - Physician Notified Physician Notified Date: 03/05/20 Physician Notified Time: 12:53 New Order Received: Yes Disposition - Disposition OB Disposition: Discharge to home, Written follow up instructions reviewed Discharge Date: 03/05/20 Discharge Time: 12:57 I agree with the RN Medical Screening Exam: Yes Risk & Benefit of care provided described in d/c instruction: Yes Diagnosis: RELATED CONDITIONS, UNSPECIFIED, THIRD TRIMESTER
== END 2020-03-05 12:57 | disposition home or self-care (01) ==
LOC: FBPOP 11:47
PROVIDERS: ATTEND Obstetrics & Gynecology
DX: O26.93 Pregnancy related conditions, unspecified, third trimester (principal); Z3A.37 37 weeks gestation of pregnancy
CPT/HCPCS: 59025; 81001; 87086; G0463; 99213

== ENCOUNTER 2020-03-15 07:24 | Inpatient (IN) | payer OTHER ==
[2020-03-15] MEDS ORDERED: CARBOPROST TROMETHAMINE 250 MCG/ML 1 ML AMP IM PRN (07:47)
[2020-03-15] MEDS ORDERED: TERBUTALINE 1 MG/ML VIAL SQ PRN (07:47)
[2020-03-15] MEDS ORDERED: OXYTOCIN 10 UNIT/ML 1 ML VIAL IM PRN (07:47)
[2020-03-15] MEDS ORDERED: LIDOCAINE 0.5% (PF) 5 MG/ML (50 ML SDV) SQ PRN (07:47)
[2020-03-15] MEDS ORDERED: METHYLERGONOVINE 0.2 MG/ML 1 ML AMP IM PRN (07:47)
[2020-03-15] MEDS: LACTATED RINGERS 1,000 ML IV SCH ×2 (08:00→08:22)
[2020-03-15 08:13] LABS: Basophils % (A) 0 %; Eosinophils # (A) 0.2 k/uL (0-0.7); Eosinophils % (A) 2 %; HCT 37.1 % (34.0-46.0); HGB 12.6 gm/dL (11.4-16.0); Lymphocytes # (A) 2.2 k/uL (1.0-4.8); Lymphocytes % (A) 19 %; MCH 33.6 pg (25.0-35.0); MCHC 33.9 g/dL (31.0-37.0); MCV 99.1 fL (80.0-100.0); Monocytes # (A) 0.4 k/uL (0-1.0); Monocytes % (A) 3 %; Neutrophils # (A) 8.7 k/uL (1.3-7.7); Neutrophils % (A) 74 %; Platelet Count 205 k/uL (150-450); RBC 3.74 m/uL (3.80-5.40); RDW 12.6 % (11.5-15.5); WBC 11.8 k/uL (3.8-10.6)
[2020-03-15] MEDS ORDERED: fentaNYL (PF) 50 MCG/ML 5 ML AMP ONE (08:33)
[2020-03-15] MEDS ORDERED: ROPIVACAINE 5MG/ML 20ML VIAL ONE (08:33)
[2020-03-15] MEDS ORDERED: SODIUM CHLORIDE 0.9% 100 ML BAG ONE (08:33)
[2020-03-15 09:11] LABS: Amphetamine Screen,Urine Not Detected (NotDetected); Barbiturate Screen,Urine Not Detected (NotDetected); Benzodiazepines Screen,Urine Not Detected (NotDetected); Cocaine Screen,Urine Not Detected (NotDetected); Methadone Screen, Urine Not Detected (NotDetected); Opiate Screen,Urine Not Detected (NotDetected); Oxycodone Screen, Urine Not Detected (NotDetected); Phencyclidine Screen,Urine Not Detected (NotDetected); Tricyclic Antidepressant,Urine Not Detected (NotDetected); Urn Cannabinoid Scrn Detected (NotDetected)
--- NOTE | 2020-03-15 09:15 | P.HPOB ---
History of Present Illness H&P Date: 03/15/20 Chief Complaint: IUP at 38 and 5/sevenths weeks, active labor This is a 24-year-old at 38-5/7 weeks that presents to labor and delivery with complaints of regular painful contractions. Patient has been receiving routine care with known complication of circumvallate placenta. Patient is a known smoker and dates she uses marijuana daily. Patient is taking Zoloft daily in addition. On blood work she has a blood type of O+, rubella nonimmune, RPR n onreactive, B surface antigen negative, HIV negative urine drug screen was positive for THC. Group beta strep negative Review of Systems Constitutional: Denies chills, Denies fatigue, Denies fever Ears, nose, mouth and throat: Denies headache Cardiovascular: Reports leg edema Respiratory: Denies dyspnea Gastrointestinal: Denies constipation, Denies diarrhea, Denies nausea, Denies vomiting Genitourinary: Reports Past Medical History Past Medical History: No Reported History Additional Past Medical History / Comment(s): chronic back pain, DDD History of Any Multi-Drug Resistant Organisms: None Reported Past Surgical History: No Surgical Hx Reported Additional Past Surgical History / Comment(s): pt had BC implant removed from left arm in September Past Anesthesia/Blood Transfusion Reactions: No Reported Reaction Past Psychological History: ADD/ADHD, Anxiety, Depression Smoking Status: Current every day smoker Past Alcohol Use History: None Reported Past Drug Use History: Marijuana - Past Family History Mother Family Medical History: No Reported History Medications and Allergies Home Medications Medication Instructions Recorded Confirmed Type Pnv No.95/Ferrous Fum/Folic AC 1 each PO DAILY #30 tablet 07/16/19 03/15/20 Rx [ Multivitamin Tablet] Sertraline [Zoloft] 50 mg PO DAILY 01/14/20 03/15/20 History Allergies Allergy/AdvReac Type Severity Reaction Status Date / Time No Known Allergies Allergy Verified 03/15/20 07:47 Exam Osteopathic Statement: *. No significant issues noted on an osteopathic structural exam other than those noted in the History and Physical/Consult. 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 Patient is noted to have nonlabored breathing, heart has regular rate and rhythm, abdomen is gravid, on vaginal exam she is 6/80/-1 amniotomy is performed and clear fluid was obtained. heart tones are noted to be category 1 and she is umberto every 3 minutes. Results Result Diagrams: 03/15/20 08:09 Abnormal Lab Results - Last 24 Hours (Table) 03/15/20 Range/Units 08:09 WBC 11.8 H (3.8-10.6) k/uL RBC 3.74 L (3.80-5.40) m/uL Neutrophils # 8.7 H (1.3-7.7) k/uL Assessment and Plan (1) Term Current Visit: Yes Status: Acute Code(s): Z34.90 - ENCNTR FOR SUPRVSN OF NORMAL , UNSP, UNSP TRIMESTER SNOMED Code(s): 66032565 (2) Active labor Current Visit: Yes Status: Acute Code(s): WAE1259 - SNOMED Code(s): 446082727 (3) Marijuana abuse Current Visit: Yes Status: Acute Code(s): F12.10 - CANNABIS ABUSE, UN COMPLICATED SNOMED Code(s): 85645428 (4) Smoker Current Visit: Yes Status: Acute Code(s): F17.200 - NICOTINE DEPENDENCE, UNSPECIFIED, UNCOMPLICATED SNOMED Code(s): 63611008 Plan: Patient is admitted to labor and delivery for active labor. Patient is requesting epidural placement. Despite spontaneous vaginal delivery.
[2020-03-15] MEDS ORDERED: BENZOCAINE/MENTHOL SPRAY 1 GM/SPRAY AEROSOL TOPICAL PRN (11:11)
[2020-03-15] MEDS ORDERED: LANOLIN CREAM 5 GM TUBE TOPICAL PRN (11:11)
[2020-03-15] MEDS ORDERED: HYDROCORTISONE 2.5% RECTAL CREAM 30 GM TUBE RECTAL PRN (11:11)
[2020-03-15] MEDS ORDERED: diphenhydrAMINE 50 MG CAP PO PRN (11:11)
[2020-03-15] MEDS ORDERED: diphenhydrAMINE 25 MG CAP PO PRN (11:11)
[2020-03-15] MEDS ORDERED: diphenhydrAMINE 50 MG/ML 1 ML VIAL IVP PRN ×2 (11:11)
[2020-03-15] MEDS ORDERED: ACETAMINOPHEN TAB 325 MG TAB PO PRN (11:11)
[2020-03-15] MEDS ORDERED: SIMETHICONE 80 MG CHEWABLE PO PRN (11:11)
[2020-03-15] MEDS ORDERED: HYDROcodone/APAP 5-325MG 1 EACH TAB PO PRN (11:11)
[2020-03-15] MEDS ORDERED: ZOLPIDEM 5 MG TAB PO PRN (11:11)
--- NOTE | 2020-03-15 11:11 | P.PROBDLV ---
Vaginal Delivery Note - . Vaginal Delivery Note: This is a 24-year-old 2 para 1001 that presented to labor and delivery at 38-5/7 weeks with complaints of regular painful contractions. Patient had been receiving routine care with the only complication of circumvallate placenta. Patient is a known smoker and daily marijuana use. Patient was admitted to labor and delivery and quickly requested epidural placement. Epidural was placed without difficulty by the anesthesia department. Patient underwent amniotomy and clear fluid was obtained. Patient progressed to complete began pushing and had a normal spontaneous vaginal delivery of a viable male at 1056, weight of 6 lbs. 15 oz. After two-minute delay the umbilical cord was doubly clamped and cut and the placenta was delivered spontaneously intact with a three-vessel cord being noted. Apgars of this viable male infant 8/9 at one and 5 minutes respectively. On inspection the patient's vaginal vault bilateral labial lacerations were noted and repaired with 2 [id number] sutures of 4-0 chromic. The uterus was then noted to be firm and below the umbilicus. Estimated blood loss for this delivery 300 mL. Patient and tolerated delivery well and are resting comfortably.
[2020-03-15] MEDS ORDERED: OXYTOCIN 20 UNITS/1000 ML NS 1,000 ML IV SCH (11:15)
[2020-03-15] MEDS: SENNOSIDES-DOCUSATE SODIUM 1 EACH TAB PO SCH (19:48)
[2020-03-15] MEDS ORDERED: MEASLES-MUMPS-RUBELLA VACC/PF 12,500 UNIT/0.5 ML VIAL SQ ONE (19:49)
[2020-03-16] MEDS: IBUPROFEN 600 MG TAB PO PRN ×2 (01:16→07:38)
[2020-03-16] MEDS: SENNOSIDES-DOCUSATE SODIUM 1 EACH TAB PO SCH (07:39)
[2020-03-16 08:32] VITALS: BP 124/77; PULSE 71; RESP 18; TEMP 97.6
[2020-03-16] MEDS ORDERED: PRENATAL VIT-IRON-FOLIC ACID 1 EACH CAP PO SCH (09:00)
[2020-03-16] MEDS ORDERED: SERTRALINE 50 MG TAB PO SCH (09:00)
--- NOTE | 2020-03-16 09:19 | P.DS ---
Providers Date of admission: 03/15/20 07:51 Expected date of discharge: 03/16/20 Attending physician: Griffin Farley Primary care physician: Stated None - Discharge Diagnosis(es) (1) Term Current Visit: Yes Status: Acute (2) Active labor Current Visit: Yes Status: Acute (3) Marijuana abuse Current Visit: Yes Status: Acute (4) Smoker Current Visit: Yes Status: Acute (5) Status post normal vaginal delivery Current Visit: Yes Status: Acute (6) Obstetric labial laceration, delivered, current hospitalization Current Visit: Yes Status: Acute Hospital Course: this is a 24-year-old 2 para 2 status post normal spontaneous vaginal delivery. Patient had been receiving routine care and presented to labor and delivery at 38-5/7 weeks with complaints of regular painful contractions. Patient was noted to be 5 cm on admission. Patient soon requested epidural placement after admission. Patient underwent amniotomy and clear fluid was obtained. Patient progressed to complete began pushing, and had a normal spontaneous vaginal delivery of a viable male infant, weight of 6 lbs. 15 oz. and Apgars of 8 and 9 at one and 5 minutes respectively. Patient did sustain bilateral labial lacerations which were repaired with 2 [id number] sutures of 4-0 chromic. Patient's course has been uneventful. On this day #1 she is ambulating and voiding without difficulty she is tolerating a regular diet without nausea or vomiting. She states her pain is well-controlled. She is breast-feeding. Patient Condition at Discharge: Good Plan - Discharge Summary New Discharge Prescriptions: No Action Pnv No.95/Ferrous Fum/Folic AC [ Multivitamin Tablet] 1 each PO DAILY #30 tablet Sertraline [Zoloft] 50 mg PO DAILY Discharge Medication List Pnv No.95/Ferrous Fum/Folic AC [ Multivitamin Tablet] 1 each PO DAILY #30 tablet 07/16/19 [Rx] Sertraline [Zoloft] 50 mg PO DAILY 01/14/20 [History] Follow up Appointment(s)/Referral(s): Griffin Farley MD [STAFF PHYSICIAN] - 6 Weeks Patient Instructions/Handouts: Vaginal Delivery (GEN), Vaginal Delivery (DC) Discharge Disposition: HOME SELF-CARE
== END 2020-03-16 12:33 | disposition home or self-care (01) | DRG 806 ==
LOC: FBPOP 07:24 → 4FBP 07:51
PROVIDERS: ADMIT Obstetrics & Gynecology Obstetrics; ATTEND Obstetrics & Gynecology
PROC: 3E0134Z Introduction of Serum, Toxoid and Vaccine into Subcutaneous Tissue, Percutaneous Approach (ICD-10-PCS; principal; 2020-03-15)
PROC: 0HQ9XZZ Repair Perineum Skin, External Approach (ICD-10-PCS; principal; 2020-03-15)
PROC: 10E0XZZ Delivery of Products of Conception, External Approach (ICD-10-PCS; 2020-03-15)
DX: O43.113 Circumvallate placenta, third trimester (principal); O99.324 Drug use complicating childbirth; Z37.0 Single live birth; O99.344 Other mental disorders complicating childbirth; O70.0 First degree perineal laceration during delivery; O99.334 Smoking (tobacco) complicating childbirth; F17.200 Nicotine dependence, unspecified, uncomplicated; F12.10 Cannabis abuse, uncomplicated; Z3A.38 38 weeks gestation of pregnancy; O26.893 Other specified pregnancy related conditions, third trimester; G89.29 Other chronic pain; M54.9 Dorsalgia, unspecified; Z23 Encounter for immunization; Z79.899 Other long term (current) drug therapy
CPT/HCPCS: 80306; 85025; 86850; 86900; 86901; 90707; 99213

== ENCOUNTER → 2020-05-14 | Outpatient (CLI) | payer OTHER | END | disposition home or self-care (01) | LOC: LABWHC1 12:06 | PROVIDERS: ATTEND Obstetrics & Gynecology | DX: Z20.828 Contact with and (suspected) exposure to other viral communicable diseases (principal) | CPT/HCPCS: U0003; C9803 ==

== ENCOUNTER → 2020-07-18 | Outpatient (CLI) | payer OTHER ==
[2020-07-18 12:07] LABS: Basophils % (A) 1 %; Eosinophils # (A) 0.1 k/uL (0-0.7); Eosinophils % (A) 1 %; HCT 42.2 % (34.0-46.0); HGB 14.9 gm/dL (11.4-16.0); Lymphocytes # (A) 1.7 k/uL (1.0-4.8); Lymphocytes % (A) 25 %; MCH 33.3 pg (25.0-35.0); MCHC 35.3 g/dL (31.0-37.0); MCV 94.5 fL (80.0-100.0); Mean Platelet Volume 7.1; Monocytes # (A) 0.3 k/uL (0-1.0); Monocytes % (A) 4 %; Neutrophils # (A) 4.6 k/uL (1.3-7.7); Neutrophils % (A) 67 %; Platelet Count 238 k/uL (150-450); RBC 4.47 m/uL (3.80-5.40); RDW 12.2 % (11.5-15.5); WBC 6.8 k/uL (3.8-10.6)
== END | disposition home or self-care (01) ==
LOC: LABWHC1 11:23
PROVIDERS: ATTEND Obstetrics & Gynecology
DX: Z01.818 Encounter for other preprocedural examination (principal)
CPT/HCPCS: 36415; 85025

== ENCOUNTER 2020-07-21 10:24 | Day surgery (SDC) | payer OTHER ==
[2020-07-16 15:49] VITALS: BMI 21.9
--- NOTE | 2020-07-18 12:06 | HP ---
HISTORY AND PHYSICAL HISTORY OF PRESENT ILLNESS: The patient is a 25-year-old 2, para 2-0-0-2, who presented to the office after recent delivery and has requested permanent sterilization with Filshie clips via laparoscopy. We have had long discussions regarding the multiple different options of long-term but reversible control and she has declined that in favor of permanent sterilization. She does understand the concept very clearly that this is a permanent procedure. PAST MEDICAL HISTORY: Past medical history is significant for ADD as well as some irregular issues of depression and as well as some degenerative disc disease. PAST SURGICAL HISTORY: None. OBSTETRICAL HISTORY: 2, para 2-0-0-2 with 2 term vaginal deliveries without complications. Current method of contraception is condoms. GYNECOLOGIC HISTORY: Unremarkable with no history of any infections to include STDs. FAMILY HISTORY: Noncontributory. SOCIAL HISTORY: The patient is and is a less than 1/4 pack per day smoker and does report occasional use of marijuana. There are no other social concerns. CURRENT MEDICATIONS: None. ALLERGIES: No known drug allergies. REVIEW OF SYSTEMS: Review of systems is confined to history of present illness. PHYSICAL EXAMINATION: Vital signs are stable. The patient is afebrile. In general, this is a well- developed, well-nourished white female in no acute distress. Her heart has regular rhythm and rate without murmur. Her lungs are clear to auscultation bilaterally in all asencio. Her abdomen is nondistended, has normoactive bowel sounds, soft, nontender, without any palpable masses, hepatosplenomegaly, or hernias. Her extremities without any cyanosis, clubbing, or edema and are nontender to palpation bilaterally. Pelvic examination demonstrates normal external genitalia and BUS with normal vaginal mucosa and cervix. There is no cervical motion tenderness. Uterus is approximately 5 weeks in size, anteverted, mobile, nontender, normal in shape. The adnexa are normal and nontender without mass bilaterally. ASSESSMENT AND PLAN: Undesired fertility: Again, long discussions were undertaken regarding the multiple long-term but reversible methods of control, which the patient has declined preferring in favor to undergo a laparoscopic bilateral tubal occlusion using Filshie clips. Consents were signed to that extent. She has a clear understanding of the permanent nature of the procedure. The risks and complications of the procedure have been thoroughly discussed including the risk for bleeding, bleeding requiring transfusion, infection, and injury to local structures to specifically include the bowel, bladder, and ureters. She has understood all of this and has agreed to proceed. We are scheduled for the morning of July 21 for the procedures as outlined above. MMHIRALL / IJN: [id number] /
[~2020-07-21 10:24] MED LIST: DEXAMETHASONE SOD PHOSPHATE 4 MG/ML 1 ML VIAL IV ONE; HYDROmorphone 0.5 MG/0.5 ML SYRINGE IVP PRN; LACTATED RINGERS 1,000 ML IV SCH; MIDAZOLAM 2 MG/2 ML VIAL IV PRN; ONDANSETRON 4 MG/2 ML VIAL IVP ONE; Pre Op ABX Message 1 EACH MISC MISCELLANE ONE; SCOPOLAMINE 1.5MG/72HR PATCH TRANSDERM ONE
[2020-07-21] MEDS ORDERED: LACTATED RINGERS 1,000 ML IV ONE ×2 (10:45→13:29)
[2020-07-21] MEDS ORDERED: LIDOCAINE 1% (10MG/ML) FOR IV START INTRADERMA ONE (10:48)
[2020-07-21] MEDS ORDERED: fentaNYL (PF) 50 MCG/ML 2 ML AMP ONE (12:04)
[2020-07-21] MEDS ORDERED: MIDAZOLAM 2 MG/2 ML VIAL ONE (12:04)
[2020-07-21] MEDS ORDERED: GLYCOPYRROLATE 0.2 MG/ML 2 ML VIAL ONE (12:04)
[2020-07-21] MEDS ORDERED: PROPOFOL 10 MG/ML 20 ML VIAL IV ONE (12:04)
[2020-07-21] MEDS ORDERED: NEOSTIGMINE 1 MG/ML 10 ML VIAL ONE (12:04)
[2020-07-21] MEDS ORDERED: ROCURONIUM 10 MG/ML (10 ML VIAL) IV ONE (12:04)
[2020-07-21] MEDS ORDERED: KETOROLAC 15 MG/ML 1 ML VIAL ONE (12:04)
[2020-07-21] MEDS ORDERED: LIDOCAINE 1% INJ 10MG/ML (20 ML MDV) ONE (12:04)
[2020-07-21] MEDS ORDERED: SUCCINYLCHOLINE CHLORIDE 100 MG/5 ML SYR IV ONE (12:04)
[2020-07-21] MEDS ORDERED: BUPIVACAINE (PF) 0.5% 30 ML VIAL SQ ONE ×2 (12:31→12:37)
[2020-07-21] MEDS ORDERED: SIMETHICONE 80 MG CHEWABLE PO PRN (12:42)
[2020-07-21] MEDS ORDERED: diphenhydrAMINE 50 MG/ML 1 ML VIAL IVP PRN (12:42)
[2020-07-21] MEDS ORDERED: Acetaminophen-Codeine 300-30mg TAB PO PRN ×2 (12:42)
[2020-07-21] MEDS ORDERED: KETOROLAC 15 MG/ML 1 ML VIAL IVP PRN (12:42)
[2020-07-21] MEDS ORDERED: METOCLOPRAMIDE 5 MG/ML 2 ML VIAL IVP PRN (12:42)
[2020-07-21] MEDS ORDERED: IBUPROFEN 600 MG TAB PO PRN (12:42)
[2020-07-21] MEDS ORDERED: ONDANSETRON 4 MG/2 ML VIAL IVP PRN (12:42)
[2020-07-21] MEDS ORDERED: LACTATED RINGERS 1,000 ML IV SCH (12:45)
--- NOTE | 2020-07-21 12:48 | P.OP ---
Date of Procedure: 07/21/20 Preoperative Diagnosis: #1. Multiparity #2. Undesired fertility Postoperative Diagnosis: Same Procedure(s) Performed: #1. Laparoscopic bilateral tubal occlusion with Filshie clips Anesthesia: YUMIKO Surgeon: Griffin Farley Estimated Blood Loss (ml): 5 IV fluids (ml): 650 Urine output (ml): 30 Pathology: none sent Condition: stable Disposition: PACU Operative Findings: Preoperative pelvic examination demonstrated a 4-5 week acutely anteverted mobile normal shaped uterus with normal adnexa bilaterally. Intraoperatively, the uterus, tubes, and ovaries were entirely normal to inspection. There was a small amount of serosanguineous fluid within the pelvis. A Filshie clip was placed firmly across each fallopian tube in the isthmic portion. The small and large intestine as well as the appendix and liver and diaphragm were all normal to inspection. The gallbladder could not be seen. Description of Procedure: The patient was prepped and draped in usual fashion after general endotracheal anesthesia was administered by the anesthesiologist. A speculum was placed and the anterior lip of the cervix grasped with a signal 2 tenaculum allowing placement of an acorn cannula for manipulation of the uterus. The bladder was drained of approximately 30 mL of clear merrill urine. The speculum was removed and attention turned to the abdomen. A 5 mm incision was made in the vertical fold of the umbilicus allowing insertion of a 5 mm optical trocar under direct visualization without difficulty. A pneumoperitoneum was instilled and the patient placed in Trendelenburg positioning. A site was selected approximate 4- 5 eugene meters above the pubic symphysis in the midline where an 8 mm incision was made in the transverse plane allowing insertion of an 8 mm trocar under direct visualization without difficulty. Trendelenburg as well as a blunt probe were utilized to sweep the bowel from the pelvis and the findings were normal as noted above. The probe was replaced with a Filshie clip applicator which was utilized to place a clip firmly across the isthmic portion of the fallopian tube on the patient's right approximately 2-3 cm from the cornu. Similar operation was carried out on the left without difficulty. Expiration of the upper abdomen demonstrated only normal findings including a normal appendix, small and large intestine, liver, diaphragm. The pneumoperitoneum was then evacuated and trochars removed. The skin was closed with interrupted subcuticular stitches of 4-0 Vicryl followed by half-inch Steri-Strips with Mastisol. The incisions were infused with a total of 10 mL of half percent Marcaine without epinephrine equally divided between the 2 sites. Assessment a blood loss for the case was less than 5 mL. There were no complications. All sponge, instrument, needle counts were correct. The patient tolerated the procedure well and proceeded to the recovery room in stable condition.
[2020-07-21] MEDS: MEPERIDINE 50 MG/ML SYRINGE IVP ONE ×2 (12:50→12:56)
[2020-07-21] MEDS ORDERED: diphenhydrAMINE 50 MG/ML 1 ML VIAL IVP ONE (12:50)
[2020-07-21 12:56] VITALS: TEMP 97
[2020-07-21 14:22] VITALS: BP 133/83; PULSE 51; RESP 18
== END 2020-07-21 14:31 | disposition home or self-care (01) ==
LOC: OR 10:24
PROVIDERS: ATTEND Obstetrics & Gynecology
DX: Z30.2 Encounter for sterilization (principal); F17.210 Nicotine dependence, cigarettes, uncomplicated; F32.9 Major depressive disorder, single episode, unspecified; Z79.899 Other long term (current) drug therapy; F98.8 Other specified behavioral and emotional disorders with onset usually occurring in childhood and adolescence
CPT/HCPCS: 81025; 58671; J2250; J1200; J1100; J2710; J2175; J2405; J2001; J3010; J1885; J0330; J2704

== ENCOUNTER 2020-11-14 08:44 | Emergency (ER) | payer OTHER ==
[2020-11-14 08:50] VITALS: RESP 18
[2020-11-14] MEDS ORDERED: LORazepam 2 MG/ML INJ IV STA (09:04)
[2020-11-14] MEDS ORDERED: diphenhydrAMINE 50 MG/ML 1 ML VIAL IVP STA (09:04)
[2020-11-14] MEDS ORDERED: SODIUM CHLORIDE 0.9% 1,000 ML IV SCH (09:15)
--- NOTE | 2020-11-14 09:24 | ED ---
General Adult HPI - General Chief complaint: Nausea/Vomiting/Diarrhea Stated complaint: Vomiting Time Seen by Provider: 11/14/20 08:51 Source: patient Mode of arrival: ambulatory Limitations: no limitations - History of Present Illness Initial comments: 25-year-old female presenting to the ER today for chief complaint of vomiting. Patient states she believes she is having a mental breakdown. She states she has been off her medication since she gave to her child 8 months ago. Patient states she is unsure if the medication was but believes is 100 mg a day. Patient states that she is losing her mind she states she is very anxious can't sleep and crying a lot. She denies suicidal or homicidal ideation. This patient states that she has not normal. Patient denies any headaches visual changes hallucinations, diarrhea, fevers, cough, congestion. Pt states she believes she is vomiting secondary to being upset. denies urinary symptoms, or abdominal pain. Patient appears well nontoxic in no acute distress. - Related Data Home Medications Medication Instructions Recorded Confirmed No Known Home Medications 11/14/20 11/14/20 Allergies Allergy/AdvReac Type Severity Reaction Status Date / Time No Known Allergies Allergy Verified 11/14/20 09:34 Review of Systems ROS Statement: Those systems with pertinent positive or pertinent negative responses have been documented in the HPI. ROS Other: All systems not noted in ROS Statement are negative. Past Medical History Past Medical History: Musculoskeletal Disorder Additional Past Medical History / Comment(s): chronic back pain, DDD History of Any Multi-Drug Resistant Organisms: None Reported Past Surgical History: No Surgical Hx Reported Additional Past Surgical History / Comment(s): BC implant surgically removed from left arm in September Past Anesthesia/Blood Transfusion Reactions: No Reported Reaction Past Psychological History: ADD/ADHD, Anxiety, Depression Smoking Status: Current every day smoker Past Alcohol Use History: None Reported Past Drug Use History: Marijuana - Past Family History Mother Family Medical History: No Reported History General Exam - General Exam Comments Initial Comments: General: The patient is awake and alert, in no distress Eye: +3 mm pupils are equal, round and reactive to light, extra-ocular movements are intact. No nystagmus. There is normal conjunctiva bilaterally. No signs of icterus. Ears, nose, mouth and throat: There are moist mucous membranes and no oral lesions. Neck: The neck is supple, there is no tenderness or JVD. Cardiovascular: There is a regular rate and rhythm. No murmur, rub or gallop is appreciated. Respiratory: Lungs are clear to auscultation, respirations are non-labored, breath sounds are equal. No wheezes, stridor, rales, or rhonchi. Gastrointestinal: Soft, non-distended, non-tender abdomen without masses or organomegaly noted. There is no rebound or guarding present. Musculoskeletal: Normal ROM, no tenderness. Strength 5/5. Sensation intact. Radial and DP pulses equal bilaterally 2+. Neurological: A&O x 3. CN II-XII intact grossly, There are no obvious motor or sensory deficits. Coordination appears grossly intact. Speech is normal. Skin: Skin is warm and dry and no rashes or lesions are noted. Psychiatric: Cooperative, appropriate mood & affect, normal judgment. Limitations: no limitations Course Vital Signs 11/14/20 11/14/20 08:47 12:46 Temperature 97.9 F 98.0 F Pulse Rate 77 82 Respiratory 18 18 Rate Blood Pressure 106/70 101/73 O2 Sat by Pulse 99 99 Oximetry - Reevaluation(s) Reevaluation #1: sleeping, resting comfortably. 11/14/20 09:48 Medical Decision Making - Medical Decision Making Labs stable. pt appears nontoxic. initially worked up. calmed down and was evaluated by EPS who reocmmended outpatient f/u after providing patient with resources. pt agreeable to this care plan and discharge. - Lab Data Result diagrams: 11/14/20 09:14 11/14/20 09:14 Lab Results 11/14/20 11/14/20 11/14/20 Range/Units 09:14 09:14 09:14 WBC 8.3 (3.8-10.6) k/uL RBC 4.60 (3.80-5.40) m/uL Hgb 14.9 (11.4-16.0) gm/dL Hct 43.2 (34.0-46.0) % MCV 93.8 (80.0-100.0) fL MCH 32.4 (25.0-35.0) pg MCHC 34.6 (31.0-37.0) g/dL RDW 12.2 (11.5-15.5) % Plt Count 210 (150-450) k/uL MPV 8.5 Neutrophils % 78 % Lymphocytes % 16 % Monocytes % 3 % Eosinophils % 1 % Basophils % 0 % Neutrophils # 6.5 (1.3-7.7) k/uL Lymphocytes # 1.4 (1.0-4.8) k/uL Monocytes # 0.2 (0-1.0) k/uL Eosinophils # 0.1 (0-0.7) k/uL Basophils # 0.0 (0-0.2) k/uL Sodium (137-145) mmol/L Potassium (3.5-5.1) mmol/L Chloride (98-107) mmol/L Carbon Dioxide (22-30) mmol/L Anion Gap mmol/L BUN (7-17) mg/dL Creatinine (0.52-1.04) mg/dL Est GFR (CKD-EPI)AfAm (>60 ml/min/1.73 sqM) Est GFR (CKD-EPI)NonAf (>60 ml/min/1.73 sqM) Glucose (74-99) mg/dL Calcium (8.4-10.2) mg/dL Total Bilirubin (0.2-1.3) mg/dL AST (14-36) U/L ALT (4-34) U/L Alkaline Phosphatase (38-126) U/L Total Protein (6.3-8.2) g/dL Albumin (3.5-5.0) g/dL Urine Color Yellow Urine Appearance Turbid H (Clear) Urine pH 6.0 (5.0-8.0) Ur Specific [place] 1.027 (1.001-1.035) Urine Protein 1+ H (Negative) Urine Glucose (UA) Negative (Negative) Urine Ketones 1+ H (Negative) Urine Blood Negative (Negative) Urine Nitrite Negative (Negative) Urine Bilirubin Negative (Negative) Urine Urobilinogen 2.0 (<2.0) mg/dL Ur Leukocyte Esterase Negative (Negative) Urine WBC 23 H (0-5) /hpf Ur Squamous Epith Cells 51 H (0-4) /hpf Amorphous Sediment Rare H (None) /hpf Urine Bacteria Occasional H (None) /hpf Urine Mucus Many H (None) /hpf Urine HCG, Qual Not Detected (Not Detectd) Urine Opiates Screen Not Detected (NotDetected) Ur Oxycodone Screen Not Detected (NotDetected) Urine Methadone Screen Not Detected (NotDetected) Ur Propoxyphene Screen Not Detected (NotDetected) Ur Barbiturates Screen Not Detected (NotDetected) U Tricyclic Antidepress Not Detected (NotDetected) Ur Phencyclidine Scrn Not Detected (NotDetected) Ur Amphetamines Screen Not Detected (NotDetected) U Methamphetamines Scrn Not Detected (NotDetected) U Benzodiazepines Scrn Not Detected (NotDetected) Urine Cocaine Screen Not Detected (NotDetected) U Marijuana (THC) Screen Detected H (NotDetected) Serum Alcohol mg/dL 11/14/20 Range/Units 09:14 WBC (3.8-10.6) k/uL RBC (3.80-5.40) m/uL Hgb (11.4-16.0) gm/dL Hct (34.0-46.0) % MCV (80.0-100.0) fL MCH (25.0-35.0) pg MCHC (31.0-37.0) g/dL RDW (11.5-15.5) % Plt Count (150-450) k/uL MPV Neutrophils % % Lymphocytes % % Monocytes % % Eosinophils % % Basophils % % Neutrophils # (1.3-7.7) k/uL Lymphocytes # (1.0-4.8) k/uL Monocytes # (0-1.0) k/uL Eosinophils # (0-0.7) k/uL Basophils # (0-0.2) k/uL Sodium 141 (137-145) mmol/L Potassium 4.0 (3.5-5.1) mmol/L Chloride 107 (98-107) mmol/L Carbon Dioxide 23 (22-30) mmol/L Anion Gap 11 mmol/L BUN 9 (7-17) mg/dL Creatinine 0.68 (0.52-1.04) mg/dL Est GFR (CKD-EPI)AfAm >90 (>60 ml/min/1.73 sqM) Est GFR (CKD-EPI)NonAf >90 (>60 ml/min/1.73 sqM) Glucose 99 (74-99) mg/dL Calcium 9.8 (8.4-10.2) mg/dL Total Bilirubin 1.2 (0.2-1.3) mg/dL AST 21 (14-36) U/L ALT 11 (4-34) U/L Alkaline Phosphatase 56 (38-126) U/L Total Protein 7.4 (6.3-8.2) g/dL Albumin 5.0 (3.5-5.0) g/dL Urine Color Urine Appearance (Clear) Urine pH (5.0-8.0) Ur Specific [place] (1.001-1.035) Urine Protein (Negative) Urine Glucose (UA) (Negative) Urine Ketones (Negative) Urine Blood (Negative) Urine Nitrite (Negative) Urine Bilirubin (Negative) Urine Urobilinogen (<2.0) mg/dL Ur Leukocyte Esterase (Negative) Urine WBC (0-5) /hpf Ur Squamous Epith Cells (0-4) /hpf Amorphous Sediment (None) /hpf Urine Bacteria (None) /hpf Urine Mucus (None) /hpf Urine HCG, Qual (Not Detectd) Urine Opiates Screen (NotDetected) Ur Oxycodone Screen (NotDetected) Urine Methadone Screen (NotDetected) Ur Propoxyphene Screen (NotDetected) Ur Barbiturates Screen (NotDetected) U Tricyclic Antidepress (NotDetected) Ur Phencyclidine Scrn (NotDetected) Ur Amphetamines Screen (NotDetected) U Methamphetamines Scrn (NotDetected) U Benzodiazepines Scrn (NotDetected) Urine Cocaine Screen (NotDetected) U Marijuana (THC) Screen (NotDetected) Serum Alcohol <10 mg/dL Disposition Clinical Impression: Vomiting, Anxiety Disposition: HOME SELF-CARE Condition: Good Instructions (If sedation given, give patient instructions): Acute Nausea and Vomiting (ED), Anxiety (ED) Additional Instructions: Please use medication as discussed. Please follow-up with family doctor in the next 2 days. Please return to emergency room if the symptoms increase or worsen or for any other concerns. Is patient prescribed a controlled substance at d/c from ED?: No Referrals: None,Stated [Primary Care Provider] - 1-[address] [facility] [NON-STAFF] - 1-2 days Time of Disposition: 12:02
[2020-11-14 09:34] LABS: Basophils % (A) 0 %; Eosinophils # (A) 0.1 k/uL (0-0.7); Eosinophils % (A) 1 %; HCT 43.2 % (34.0-46.0); HGB 14.9 gm/dL (11.4-16.0); Lymphocytes # (A) 1.4 k/uL (1.0-4.8); Lymphocytes % (A) 16 %; MCH 32.4 pg (25.0-35.0); MCHC 34.6 g/dL (31.0-37.0); MCV 93.8 fL (80.0-100.0); Mean Platelet Volume 8.5; Monocytes # (A) 0.2 k/uL (0-1.0); Monocytes % (A) 3 %; Neutrophils # (A) 6.5 k/uL (1.3-7.7); Neutrophils % (A) 78 %; Platelet Count 210 k/uL (150-450); RDW 12.2 % (11.5-15.5); WBC 8.3 k/uL (3.8-10.6)
[2020-11-14 09:47] LABS: ALT 11 U/L (4-34); AST 21 U/L (14-36); African American GFR (CKD) >90 (>60 ml/min/1.73 sqM); Alcohol <10 mg/dL; Alkaline Phosphatase 56 U/L (38-126); Anion Gap 11 mmol/L; Blood Urea Nitrogen 9 mg/dL (7-17); Calcium 9.8 mg/dL (8.4-10.2); Carbon Dioxide 23 mmol/L (22-30); Chloride 107 mmol/L (98-107); Glucose 99 mg/dL (74-99); Non-African American GFR(CKD) >90 (>60 ml/min/1.73 sqM); Sodium 141 mmol/L (137-145); Total Bilirubin 1.2 mg/dL (0.2-1.3); Total Protein 7.4 g/dL (6.3-8.2)
[2020-11-14 09:52] LABS: Amphetamine Screen,Urine Not Detected (NotDetected); Barbiturate Screen,Urine Not Detected (NotDetected); Benzodiazepines Screen,Urine Not Detected (NotDetected); Cocaine Screen,Urine Not Detected (NotDetected); Methadone Screen, Urine Not Detected (NotDetected); Opiate Screen,Urine Not Detected (NotDetected); Oxycodone Screen, Urine Not Detected (NotDetected); Phencyclidine Screen,Urine Not Detected (NotDetected); Tricyclic Antidepressant,Urine Not Detected (NotDetected); Urn Cannabinoid Scrn Detected (NotDetected)
[2020-11-14 09:58] LABS: Amorphous Sediment,Urine Rare /hpf; Appearance,Urine Turbid (Clear); Bacteria,Urine Occasional /hpf; Bilirubin,Urine Negative (Negative); Blood,Urine Negative (Negative); Color,Urine Yellow; Glucose,Urine (UA) Negative (Negative); Ketones,Urine 1+ (Negative); Leukocyte Esterase,Urine Negative (Negative); Mucus,Urine Many /hpf; Nitrite,Urine Negative (Negative); Protein,Urine 1+ (Negative); Specific Gravity,Urine 1.027 (1.001-1.035); Squamous Epithelial Cell,Urine 51 /hpf (0-4); WBC,Urine 23 /hpf (0-5)
[2020-11-14 12:48] VITALS: BP 101/73; PULSE 82; TEMP 98
== END 2020-11-14 12:46 | disposition home or self-care (01) ==
LOC: EC 08:44
DX: R11.2 Nausea with vomiting, unspecified (principal); F41.9 Anxiety disorder, unspecified; F17.200 Nicotine dependence, unspecified, uncomplicated
CPT/HCPCS: 82075; 36415; 80053; 85025; 81001; 81025; 80306; 99284; 96374; 96375; 96361 ×3; G0480; J2060; J1200; 80320; 99283

== ENCOUNTER 2024-05-11 17:07 | Emergency (ER) | payer OTHER ==
[2024-05-11 17:17] VITALS: TEMP 98.3
--- NOTE | 2024-05-11 17:17 | ED ---
General Adult HPI - General Source: patient Mode of arrival: ambulatory Limitations: no limitations <Cecy Smalls - Last Filed: 05/11/24 17:17> - General Source: patient, RN notes reviewed Mode of arrival: ambulatory Limitations: no limitations <Sonal Head - Last Filed: 05/12/24 01:11> - General Stated complaint: back pain Time Seen by Provider: 05/11/24 17:17 - History of Present Illness Initial comments: 29-year-old female presenting with multiple complaints. Patient is complaining of headache, back pain, and chest tightness. (Cecy Smalls) 29-year-old female presents to the emergency department for evaluation of headache and chest discomfort. Patient states that she has been experiencing a headache for the past 5 days which is localized mostly in her neck and radiates to the back of her head. She states that she has taken Tylenol and Midol but has not experienced any relief from this. Patient also admitted to some central chest discomfort that this started last night. She denies any fever, recent illness. She denies any oral contraceptive use. Denies redness or swelling in her legs. Denies recent travel. (Sonal Head) - Related Data Home Medications Medication Instructions Recorded Confirmed No Known Home Medications 11/14/20 11/14/20 Allergies Allergy/AdvReac Type Severity Reaction Status Date / Time No Known Allergies Allergy Verified 11/14/20 09:34 Review of Systems ROS Other: All systems not noted in ROS Statement are negative. <Cecy Smalls - Last Filed: 05/11/24 17:17> ROS Other: All systems not noted in ROS Statement are negative. <Sonal Head - Last Filed: 05/12/24 01:11> ROS Statement: Those systems with pertinent positive or pertinent negative responses have been documented in the HPI. Past Medical History Past Medical History: Musculoskeletal Disorder Additional Past Medical History / Comment(s): chronic back pain, DDD History of Any Multi-Drug Resistant Organisms: None Reported Past Surgical History: No Surgical Hx Reported Additional Past Surgical History / Comment(s): BC implant surgically removed from left arm in September Past Anesthesia/Blood Transfusion Reactions: No Reported Reaction Past Psychological History: ADD/ADHD, Anxiety, Depression Smoking Status: Current every day smoker Past Alcohol Use History: None Reported Past Drug Use History: Marijuana - Past Family History Mother Family Medical History: No Reported History <Cecy Smalls - Last Filed: 05/11/24 17:17> General Exam <Cecy Smalls - Last Filed: 05/11/24 17:17> Limitations: no limitations General appearance: alert, in no apparent distress Head exam: Present: atraumatic, normocephalic, normal inspection Eye exam: Present: normal appearance, PERRL, EOMI. Absent: scleral icterus, conjunctival injection, periorbital swelling ENT exam: Present: normal exam, mucous membranes moist, TM's normal bilaterally, normal external ear exam Neck exam: Present: normal inspection, full ROM. Absent: tenderness, m eningismus, lymphadenopathy Respiratory exam: Present: normal lung sounds bilaterally. Absent: respiratory distress, wheezes, rales, rhonchi, stridor Cardiovascular Exam: Present: regular rate, normal rhythm, normal heart sounds. Absent: systolic murmur, diastolic murmur, rubs, gallop, clicks GI/Abdominal exam: Present: soft, normal bowel sounds. Absent: distended, tenderness, guarding, rebound, rigid Extremities exam: Present: normal inspection, full ROM, normal capillary refill. Absent: tenderness, pedal edema, joint swelling, calf tenderness Back exam: Present: normal inspection Neurological exam: Present: alert, oriented X3 Psychiatric exam: Present: normal affect, normal mood Skin exam: Present: warm, dry, intact, normal color. Absent: rash <Sonal Head - Last Filed: 05/12/24 01:11> - General Exam Comments Initial Comments: Visual Physical Exam Vital signs reviewed General: Well-appearing, nontoxic, no acute distress. Head: Normocephalic, atraumatic Eyes: PERRLA, EOMI ENT: Airway patent Chest: Nonlabored breathing Skin: No visual rash, normal skin tone Neuro: Alert and oriented 3 Musculoskeletal: No gross abnormalities (Cecy Smalls) Course Vital Signs 05/11/24 05/11/24 17:14 22:12 Temperature 98.3 F Pulse Rate 71 65 Respiratory 18 16 Rate Blood Pressure 128/78 107/71 O2 Sat by Pulse 99 100 Oximetry Medical Decision Making <Cecy Smalls - Last Filed: 05/11/24 17:17> - Lab Data Result diagrams: 05/11/24 20:12 05/11/24 20:12 <Sonal Head - Last Filed: 05/12/24 01:11> - Medical Decision Making I performed the quick note portion of this visit, electronically signed Cecy Smalls PA-C (Cecy Smalls) Was pt. sent in by a medical professional or institution ([facility], [employer], urgent care, hospital, or fpc...) When possible be specific @ -No Did you speak to anyone other than the patient for history (EMS, parent, family, police, friend...)? What history was obtained from this source @ -No Did you review nursing and triage notes (agree or disagree)? Why? @ -I reviewed and agree with nursing and triage notes Were old charts reviewed (outside hosp., previous admission, EMS record, old EKG, old radiological studies, urgent care reports/EKG's, fpc records)? Report findings @ -No old charts were reviewed Differential Diagnosis (chest pain, altered mental status, abdominal pain women, abdominal pain men, vaginal bleeding, weakness, fever, dyspnea, syncope, headache, dizziness, GI bleed, back pain, seizure, CVA, palpatations, mental health, musculoskeletal)? @ -Differential Headache: Migraine, tension, cluster, carbon monoxide, central venous thrombosis, pension karma temporal arteritis, acute closure glaucoma, intercranial hemorrhage, mastoiditis, sinusitis, head injury, this is not meant to be an all-inclusive list. EKG interpreted by me (3pts min.). @ -EKG at 257 shows sinus rhythm rate 60, TN 146, QRS 88, QTQTc [id number] X-rays interpreted by me (1pt min.). @ -Chest x-ray shows no acute process CT interpreted by me (1pt min.). @ -CT brain and C-spine shows no acute process U/S interpreted by me (1pt. min.). @ -None done What testing was considered but not performed or refused? (CT, X-rays, U/S, labs)? Why? @ -None What meds were considered but not given or refused? Why? @ -Migraine cocktail considered, patient declined Did you discuss the management of the patient with other professionals (professionals i.e. , PA, [employer], lab, RT, psych nurse, manager social responsibility, gas examiner, teacher, promotion officer, medical case worker)? Give summary @ -No Was smoking cessation discussed for >3mins.? @ -No Was critical care preformed (if so, how long)? @ -No Were there social determinants of health that impacted care today? How? (Homelessness, low income, unemployed, alcoholism, drug addiction, tra nsportation, low edu. Level, literacy, decrease access to med. care, long term, rehab)? @ -No Was there de-escalation of care discussed even if they declined (Discuss DNR or withdrawal of care, Hospice)? DNR status @ -No What co-morbidities impacted this encounter? (DM, HTN, Smoking, COPD, CAD, Cancer, CVA, ARF, Chemo, Hep., AIDS, mental health diagnosis, sleep apnea, morbid obesity)? @ -None Was patient admitted / discharged? Hospital course, mention meds given and route, prescriptions, significant lab abnormalities, going to OR and other pertinent info. @ -Discharge. Patient presented to the emergency department for evaluation of headache, chest discomfort. Patient underwent laboratory studies revealing no significant leukocytosis, CMP essentially unremarkable. Troponin negative. UA shows no evidence of infectious process. Urine hCG negative. PERC negative. Chest x-ray shows no acute process. CT brain and C-spine shows no acute process. Discussed these findings with the patient. She will be discharged home. She is understanding and agreeable with the plan. Patient stable at time of discharge. Case discussed with pain hemorrhoid. Undiagnosed new problem with uncertain prognosis? @ -No Drug Therapy requiring intensive monitoring for toxicity (Heparin, Nitro, Insulin, Cardizem)? @ -No Were any procedures done? @ -No Diagnosis/symptom? @ -Headache, chest discomfort Acute, or Chronic, or Acute on Chronic? @ -Acute Uncomplicated (without systemic symptoms) or Complicated (systemic symptoms)? @ -Uncomplicated Side effects of treatment? @ -No Exacerbation, Progression, or Severe Exacerbation? @ -No Poses a threat to life or bodily function? How? (Chest pain, USA, OR, pneumonia, PE, COPD, DKA, ARF, appy, cholecystitis, CVA, Diverticulitis, Homicidal, Suicida l, threat to staff... and all critical care pts) @ -No (Sonal Head) - Lab Data Lab Results 05/11/24 05/11/24 05/11/24 Range/Units 20:12 20:12 20:12 WBC 11.0 H (3.8-10.6) k/uL RBC 4.43 (3.80-5.40) m/uL Hgb 14.6 (11.4-16.0) gm/dL Hct 43.6 (34.0-46.0) % MCV 98.4 (80.0-100.0) fL MCH 33.0 (25.0-35.0) pg MCHC 33.6 (31.0-37.0) g/dL RDW 12.2 (11.5-15.5) % Plt Count 255 (150-450) k/uL MPV 7.6 Neutrophils % 60 % Lymphocytes % 33 % Monocytes % 4 % Eosinophils % 1 % Basophils % 0 % Neutrophils # 6.6 (1.3-7.7) k/uL Lymphocytes # 3.7 (1.0-4.8) k/uL Monocytes # 0.4 (0-1.0) k/uL Eosinophils # 0.1 (0-0.7) k/uL Basophils # 0.0 (0-0.2) k/uL PT 10.6 (10.0-12.5) sec INR 1.0 (<1.2) APTT 25.0 (22.0-30.0) sec Sodium (137-145) mmol/L Potassium (3.5-5.1) mmol/L Chloride (98-107) mmol/L Carbon Dioxide (22-30) mmol/L Anion Gap mmol/L BUN (7-17) mg/dL Creatinine (0.52-1.04) mg/dL Est GFR (CKD-EPI)AfAm (>60 ml/min/1.73 sqM) Est GFR (CKD-EPI)NonAf (>60 ml/min/1.73 sqM) Glucose (74-99) mg/dL Calcium (8.4-10.2) mg/dL Magnesium (1.6-2.3) mg/dL Total Bilirubin (0.2-1.3) mg/dL AST (14-36) U/L ALT (4-34) U/L Alkaline Phosphatase (38-126) U/L Troponin I (0.000-0.034) ng/mL Total Protein (6.3-8.2) g/dL Albumin (3.5-5.0) g/dL Urine Color Yellow Urine Appearance Cloudy H (Clear) Urine pH 6.5 (5.0-8.0) Ur Specific [place] 1.026 (1.001-1.035) Urine Protein Trace H (Negative) Urine Glucose (UA) Negative (Negative) Urine Ketones Negative (Negative) Urine Blood Negative (Negative) Urine Nitrite Negative (Negative) Urine Bilirubin Negative (Negative) Urine Urobilinogen <2.0 (<2.0) mg/dL Ur Leukocyte Esterase Negative (Negative) Urine RBC 2 (0-5) /hpf Urine WBC 2 (0-5) /hpf Ur Squamous Epith Cells 6 H (0-4) /hpf Amorphous Sediment Rare H (None) /hpf Urine Mucus Few H (None) /hpf Urine HCG, Qual (Not Detectd) 05/11/24 05/11/24 05/11/24 Range/Units 20:12 20:12 20:12 WBC (3.8-10.6) k/uL RBC (3.80-5.40) m/uL Hgb (11.4-16.0) gm/dL Hct (34.0-46.0) % MCV (80.0-100.0) fL MCH (25.0-35.0) pg MCHC (31.0-37.0) g/dL RDW (11.5-15.5) % Plt Count (150-450) k/uL MPV Neutrophils % % Lymphocytes % % Monocytes % % Eosinophils % % Basophils % % Neutrophils # (1.3-7.7) k/uL Lymphocytes # (1.0-4.8) k/uL Monocytes # (0-1.0) k/uL Eosinophils # (0-0.7) k/uL Basophils # (0-0.2) k/uL PT (10.0-12.5) sec INR (<1.2) APTT (22.0-30.0) sec Sodium 138 (137-145) mmol/L Potassium 3.8 (3.5-5.1) mmol/L Chloride 104 (98-107) mmol/L Carbon Dioxide 27 (22-30) mmol/L Anion Gap 7 mmol/L BUN 11 (7-17) mg/dL Creatinine 0.66 (0.52-1.04) mg/dL Est GFR (CKD-EPI)AfAm >90 (>60 ml/min/1.73 sqM) Est GFR (CKD-EPI)NonAf >90 (>60 ml/min/1.73 sqM) Glucose 80 (74-99) mg/dL Calcium 9.9 (8.4-10.2) mg/dL Magnesium 2.0 (1.6-2.3) mg/dL Total Bilirubin 1.0 (0.2-1.3) mg/dL AST 21 (14-36) U/L ALT 16 (4-34) U/L Alkaline Phosphatase 49 (38-126) U/L Troponin I <0.012 (0.000-0.034) ng/mL Total Protein 7.4 (6.3-8.2) g/dL Albumin 4.9 (3.5-5.0) g/dL Urine Color Urine Appearance (Clear) Urine pH (5.0-8.0) Ur Specific [place] (1.001-1.035) Urine Protein (Negative) Urine Glucose (UA) (Negative) Urine Ketones (Negative) Urine Blood (Negative) Urine Nitrite (Negative) Urine Bilirubin (Negative) Urine Urobilinogen (<2.0) mg/dL Ur Leukocyte Esterase (Negative) Urine RBC (0-5) /hpf Urine WBC (0-5) /hpf Ur Squamous Epith Cells (0-4) /hpf Amorphous Sediment (None) /hpf Urine Mucus (None) /hpf Urine HCG, Qual Not Detected (Not Detectd) Disposition <Cecy Smalls - Last Filed: 05/11/24 17:17> Is patient prescribed a controlled substance at d/c from ED?: No <Sonal Head - Last Filed: 05/12/24 01:11> Clinical Impression: Headache Disposition: HOME SELF-CARE Condition: Stable Instructions (If sedation given, give patient instructions): Acute Headache (ED) Additional Instructions: Please follow up with your primary care provider. Return to the emergency department for new or worsening symptoms. Referrals: Jordan Galvin Jr, DO [Primary Care Provider] - 1-2 days
[2024-05-11] MEDS: SODIUM CHLORIDE 0.9% 1,000 ML IV STA (20:15)
[2024-05-11 20:40] LABS: Basophils % (A) 0 %; Eosinophils # (A) 0.1 k/uL (0-0.7); Eosinophils % (A) 1 %; HCT 43.6 % (34.0-46.0); HGB 14.6 gm/dL (11.4-16.0); Lymphocytes # (A) 3.7 k/uL (1.0-4.8); Lymphocytes % (A) 33 %; MCHC 33.6 g/dL (31.0-37.0); MCV 98.4 fL (80.0-100.0); Mean Platelet Volume 7.6; Monocytes # (A) 0.4 k/uL (0-1.0); Monocytes % (A) 4 %; Neutrophils # (A) 6.6 k/uL (1.3-7.7); Neutrophils % (A) 60 %; Platelet Count 255 k/uL (150-450); RBC 4.43 m/uL (3.80-5.40); RDW 12.2 % (11.5-15.5)
[2024-05-11 20:42] LABS: Amorphous Sediment,Urine Rare /hpf; Appearance,Urine Cloudy (Clear); Bilirubin,Urine Negative (Negative); Blood,Urine Negative (Negative); Color,Urine Yellow; Glucose,Urine (UA) Negative (Negative); Ketones,Urine Negative (Negative); Leukocyte Esterase,Urine Negative (Negative); Mucus,Urine Few /hpf; Nitrite,Urine Negative (Negative); PH, Urine 6.5 (5.0-8.0); Protein,Urine Trace (Negative); RBC,Urine 2 /hpf (0-5); Specific Gravity,Urine 1.026 (1.001-1.035); Squamous Epithelial Cell,Urine 6 /hpf (0-4); Urobilinogen,Urine <2.0 mg/dL (<2.0); WBC,Urine 2 /hpf (0-5)
--- NOTE | 2024-05-11 20:42 | XR ---
EXAMINATION TYPE: XR chest 2V DATE OF EXAM: 05/11/2024 8:32 PM COMPARISON: 03/18/2019 CLINICAL INDICATION: Female, 29 years old with history of Chest Pain, TECHNIQUE: XR chest 2V view(s) obtained. FINDINGS: The heart size is normal. The pulmonary vasculature is normal. The lungs are clear. IMPRESSION: 1. No acute pulmonary process. [facility], , 05/11/2024 8:40 PM
[2024-05-11 20:44] LABS: Prothrombin Time 10.6 sec (10.0-12.5)
[2024-05-11 21:23] LABS: ALT 16 U/L (4-34); AST 21 U/L (14-36); African American GFR (CKD) >90 (>60 ml/min/1.73 sqM); Albumin 4.9 g/dL (3.5-5.0); Alkaline Phosphatase 49 U/L (38-126); Anion Gap 7 mmol/L; Blood Urea Nitrogen 11 mg/dL (7-17); Calcium 9.9 mg/dL (8.4-10.2); Carbon Dioxide 27 mmol/L (22-30); Chloride 104 mmol/L (98-107); Glucose 80 mg/dL (74-99); Non-African American GFR(CKD) >90 (>60 ml/min/1.73 sqM); Potassium 3.8 mmol/L (3.5-5.1); Sodium 138 mmol/L (137-145); Total Protein 7.4 g/dL (6.3-8.2)
--- NOTE | 2024-05-11 21:37 | CT ---
EXAMINATION TYPE: CT brain leodan schreiber con DATE OF EXAM: 05/11/2024 9:29 PM COMPARISON: None. CLINICAL INDICATION: Female, 29 years old with history of pain, headache x1 week, dizziness TECHNIQUE: CT of the brain is performed utilizing 3 mm thick sections through the posterior fossa and 3 mm thick sections through the remaining calvarium. Study is performed within 24 hours of arrival to the hospital. Contrast used: mL of , (none if empty) CT DLP: 1242.8 mGycm, Automated exposure control for dose reduction was used. FINDINGS: No abnormal hyperdensity is present to suggest an acute intracranial hemorrhage. No mass lesion is evident. No acute infarcts are evident. Ventricles and sulci are appropriate for the patient age. Paranasal sinuses and mastoid air cells within the [id number] are clear. IMPRESSIONS: 1. No acute intracranial process. Follow-up MRI can be performed as clinically indicated. CT cervical spine. COMPARISON: None TECHNIQUE: CT of the cervical spine is performed in the axial plane at 2 mm thick sections. Reconstr ucted images in the coronal, and sagittal plane are reviewed on the computer. FINDINGS: No acute fractures are evident. Vertebral body alignment is normal. Disc heights are preserved. Vertebral body heights are preserved. No spinal canal stenosis is evident. No neural foraminal stenosis is evident. IMPRESSION: 1. Normal CT cervical spine. [facility], , 05/11/2024 9:35 PM
[2024-05-11 22:13] VITALS: BP 107/71; PULSE 65; RESP 16
== END 2024-05-11 22:13 | disposition home or self-care (01) ==
LOC: EC 17:07
DX: R51.9 Headache, unspecified (principal); F17.200 Nicotine dependence, unspecified, uncomplicated
CPT/HCPCS: 36415; 51798; 70450; 71046; 72125; 80053; 81001; 81025; 83735; 84484; 85025; 85610; 85730; 93005; 96360; 99284